=== PATIENT | female | born 1985 | race Caucasian/White ===

== ENCOUNTER 2022-11-17 12:19 | Day surgery (SDC) | payer OTHER, SELFPAY ==
[2022-11-07 16:39] VITALS: BMI 32.7
[2022-11-17] VITALS (7 sets, daily range): BP systolic 106–112; BP diastolic 58–74; PULSE 60–79; RESP 12–16; TEMP 36.1–36.6; O2SAT 96–100; BMI 32.7
--- NOTE | 2022-11-17 | PATH_ITS ---
[facility] Accession Number: [id number] No. of containers..02 Tissue . 01 Material submitted: . PART A: vagina - VAGINAL OCCLUSION CYST PART B: endometrium - ENDOMETRIAL BIOPSY . 01 Diagnosis: A. Designated As Vaginal Occlusion Cyst, Excisional Biopsy: Squamous mucosa with focally thin/attenuated simple-epithelial squamoid lining with chronic and histiocytic inflammation, and hemosiderin-laden macrophages, as evidence of prior hemorrhage. Negative for dysplasia and malignancy. See comment. . B. Endometrium, Biopsy: Proliferative endometrium with features of shedding/breakdown. Focal polypoid changes are seen. No evidence of neoplasia or malignancy. . COMMENT: Part A: The differential diagnosis includes benign epithelial-lined cyst with evidence of prior rupture/inflammation, and endometriosis (less favored). V 11/24/2022 1452 Local . 01 Electronically signed: . Isabel Basurto MD, Pathologist NPI- [id number] . 01 Gross description: . A. Received in formalin labeled with the patient's name, and vaginal occlusion cyst consists of a araiza, membranous soft tissue fragment consistent with disrupted cyst measuring 1.1 x 0.7 x 0.4 cm with no contents or excrescences identified. One aspect is inked blue. The specimen is bisected and submitted entirely in cassette A1. B. Received in formalin labeled with the patient's name, and endometrial biopsy consists of multiple araiza soft tissue fragments admixed with mucohemorrhagic material aggregating to 4.3 x 2.2 x 0.3 cm. Filtered and submitted entirely in cassettes B1-B2. ([id number]) /MRV 11/19/2022 1244 Local . 01 Pathologist provided ICD-10: N92.0, N93.9, N89.8 . 01 CPT . 371483, 526438 Specimen Comment: A courtesy copy of this report has been sent to [phone] Performed at: 01 [facility] [address] [place] [address], [place], [place] [id number] MD Nathan Latif MD Phone: [phone]
[2022-11-17] MEDS: SCOPOLAMINE 1 PATCH TOP (12:43)
[2022-11-17] MEDS: ACETAMINOPHEN 325 MG TABLET 975 MG PO (12:44)
--- NOTE | 2022-11-17 13:02 | PM.PREOP ---
Pre-operative Note COVID-19 Criteria for continued procedure: Expected advancement of disease process Interval Note History & Physical reviewed/Exam performed by Physician: Yes Changes to H&P: No
--- NOTE | 2022-11-17 13:03 | P.HPOB_ITS ---
History of Present Illness History of Present Illness Reason for admission: vaginal bleeding and other (Vaginal cyst) Narrative: Ingrid Falcon is a 37 year old female who is admitted for surgical procedure of hysteroscopy D&C and removal of vaginal wall cyst [facility] Medical History (Updated 11/17/22 @ 13:09 by Ashlyn Garcia MD) Chicken pox (~1989) Heavy menstrual period (~2018) History of vertigo Ovarian cyst Vertigo (~2020) Surgical History (Updated 11/14/22 @ 20:39 by Mindi Lindo) Anesthesia History of dilatation and curettage (~2012) History of placement of ear tubes (~1992) History of tonsillectomy (~1990) Family History (Updated 11/14/22 @ 20:43 by Mindi Lindo) Father Cancer Hyperlipidemia Mother Hyperlipidemia Anxiety High blood sugar Grandfather History of heart disease Grandmother Mental health problem Grandfather History of heart disease Grandmother Lung disease Social History household members: spouse Smoking Status: Never smoker alcohol intake: current Meds Home Medications and Allergies Home Medications Medication Instructions Recorded Confirmed Type cetirizine 10 mg tablet (Zyrtec) 10 mg PO DAILY 11/11/22 11/17/22 History cholecalciferol (vitamin D3) 50 50 mcg PO DAILY 11/11/22 11/11/22 History mcg (2,000 unit) capsule (Vitamin D3) [id number] C 250 1 tab PO DAILY 11/11/22 11/11/22 History mg-herbal no.124 11.66 mg chewable tablet (Airborne Gummy) multivitamin 1 tab PO DAILY 11/11/22 11/11/22 History omega-3 fatty acids 500 mg capsule 1,000 mg PO DAILY 11/11/22 11/11/22 History berberine-herbal comb no.18 capsule 2 cap PO DAILY 11/17/22 11/17/22 History Allergies Allergy/AdvReac Type Severity Reaction Status Date / Time No Known Drug Allergies Allergy Verified 11/11/22 11:43 Review of Systems Review of Systems Narrative: Patient is a 37-year-old A1, with progressively heavy periods since her most recent spontaneous vaginal in 2016.? She had a Kyleena IUD inserted after delivery which slightly reduced her menstrual flow but after removal in 2020, her periods have become progressively heavy.? Her cycles are 28-30 days with 5-7 days of flow, 2-3 of those days are very heavy.? She denies intermenstrual bleeding or postcoital bleeding.? She does have both superficial and deep dyspareunia with a superficial dyspareunia associated with an introital cyst which developed after her last delivery of a 10 lb 6 oz infant requiring significant perineal repair.? Patient's Pap smear in 2022 is negative but pelvic ultrasound performed 08/07/2022 prior to moving to this area shows the uterus to be normal in size, retroverted, measuring 7.2 x 5.4 x 6.4 cm.? The myometrium demonstrated no focal fibroids.? The endometrial stripe measured 1.2 cm in combined thickness.? The endometrium contains of vascular hyperechoic/heterogenous mass measuring approximately 1.4 x 0.9 x 1.6 cm.? A 2nd echogenic endometrial mass measures 1.2 cm x 0.5 cm x 1.4 cm.? The adnexa were unremarkable.? Subsequent sonohysterogram confirmed the presence of 2 endometrial polyps. Patient is agreeable to proceed with hysteroscopy D&C with removal of polyps if found with electricity and/or scraping Exam Narrative Exam Narrative: HEENT exam within normal limits. No thyromegaly. Lungs are clear to au scultation percussion. Heart is regular rate and rhythm no S3-S4 murmurs. See Dr. Christensen's note for pelvic exam on 10/28/2022. 1.5 cm cyst at the vaginal opening from prior repair vaginal tear post . Extremities without edema and nontender. Consent form for hysteroscopy D&C with removal vaginal cyst reviewed with the patient. Less than 1% risk of reaction to medication or anesthesia, infection, bleeding that could require blood transfusion, perforation the uterus that could result in needing additional surgery due to damage to internal structures such as bowel, bladder, ureters. Consent form signed and questions answered. Postop instructions for bleeding up to 6 weeks after procedure, avoiding intercourse for 2 weeks postprocedure. Call for concerns. She has a postoperative appointment scheduled on 12/04/2022 Patient declined test as she is currently on her menses and she is not had intercourse recently. Assessment & Plan Assessment and plan (1) Preoperative exam for gynecologic surgery: Status: Acute (2) Uterine polyp: Status: Acute (3) Heavy menstrual period: Status: Acute (4) Abnormal uterine bleeding due to endometrial polyp: Status: Acute (5) Vaginal inclusion cyst: Status: Acute Assessment & Plan narrative: Patient is here for hysteroscopy D&C with removal of vaginal inclusion cyst. Postop instructions reviewed. Motrin as needed for pain. Patient has a follow-up appointment on 12/04/2022. Time Spent With Patient Time with patient: less than 30 minutes
--- NOTE | 2022-11-17 13:05 | PM.DS.1 ---
History of Present Illness History of Present Illness Chief complaint: [facility] Discharge Providers Provider Primary care physician: Doctor Jose MD Discharge provider: Ashlyn Garcia MD [facility] Medical History (Updated 11/14/22 @ 20:39 by Mindi Lindo) Chicken pox (~1989) Heavy menstrual period (~2018) History of vertigo Ovarian cyst Vertigo (~2020) Surgical History (Updated 11/14/22 @ 20:39 by Mindi Lindo) Anesthesia History of dilatation and curettage (~2012) History of placement of ear tubes (~1992) History of tonsillectomy (~1990) Family History (Updated 11/14/22 @ 20:43 by Mindi Lindo) Father Cancer Hyperlipidemia Mother Hyperlipidemia Anxiety High blood sugar Grandfather History of heart disease Grandmother Mental health problem Grandfather History of heart disease Grandmother Lung disease Social History household members: spouse Smoking Status: Never smoker alcohol intake: current Discharge Plan Nursing Discharge Comment: Tylenol 975mg taken at 12:45pm. Next dose after 6:45pm Discharge orders & Medications Prescriptions: No Action multivitamin [Multi-Vitamins] Tablet 1 tab PO DAILY cetirizine [Zyrtec] 10 mg Tablet 10 mg PO DAILY Fish Oil 500 mg Capsule 1,000 mg PO DAILY cholecalciferol (vitamin D3) [Vitamin D3] 50 mcg (2,000 unit) Capsule 50 mcg PO DAILY Airborne Gummy 250-11.66 mg Tablet,Chewable 1 tab PO DAILY berberine-herbal comb no.18 Capsule 2 cap PO DAILY Follow up/Referrals: Doctor Garcia MD [Primary Care Provider] - Discharge Data Primary Care Provider: Doctor Jose Attending Provider: Ashlyn Garcia
--- NOTE | 2022-11-17 13:37 | SUR.OPER ---
Lithotomy on padded OR bed, head on pillow, arms secured on padded arm boards at <90 degrees abduction. Legs secured in padded yellow fins stirrups.
[2022-11-17] MEDS: LACTATED RINGERS 1,000 ML 42 ML IV (13:42)
--- NOTE | 2022-11-17 14:12 | PM.OP.1 ---
Operative Date/Time/Diagnoses Date of procedure: 11/17/22 Time of procedure: 14:12 Pre-op diagnosis: Menorrhagia with polyps on ultrasound, vaginal inclusion cyst at posterior fourchette Post-op diagnosis: same Procedure & Clinicians Procedure: Hysteroscopy D&C with resection of endometrial polyps. Removal of vaginal inclusion cyst. Same procedure as scheduled: Yes Indications: Menorrhagia with ultrasound consistent with endometrial polyps and inclusion cyst at the vaginal opening Surgeon: Ashlyn Garcia Click Yes if Unassisted: Yes Anesthesia Type: General Operative Notes Findings: Several large endometrial polyps at the fundus to the right side. 1 cm inclusion cyst at the midline repair of perineal tear at delivery at the vaginal opening Closure Type: primary Specimen(s): other (Endometrial biopsy and curettings and vaginal inclusion cyst) Estimated Blood Loss (mL): 10 Blood products transfused: none Procedure in detail: The patient was brought to the operating room where she underwent general anesthesia. She was placed in low stirrups She was prepped and draped in usual sterile fashion with pulsatile stockings in place and functional, warming in place, no antibiotics were indicated. Her bladder was drained with in and out catheter. A single-tooth tenaculum was placed on the anterior lip of the cervix and the uterus dilated to #8 Hegar dilator. The hysteroscope was placed into the uterus with a sorbitol solution running and under constant suction. The resecting loop set at 80 W of cutting was used to resect the polyps down to the level of the endometrium. An endometrial curettage was performed. The polyps and the endometrial curettage was sent to pathology. An incision was made over the inclusion cyst at the hymenal ring at 6:00 o'clock. The cyst had thick araiza inclusion material. The cyst wall was grasped and remove with scissors. The defect was closed with [id number] sutures of 3-0 Vicryl suture and the skin was closed subcuticularly with 3-0 Vicryl suture. The patient went to recovery room in good condition counts of instruments and sponges were correct. The sorbitol solution I=O approximately 2000 mL. Complications: none Post-operative Condition: stable Disposition: same day surgery Plan for aftercare: Home when awake and stable. Treatment and follow-up based on pathology report.
[2022-11-17] MEDS: OXYCODONE IR 5 MG TABLET PO ×2 (14:25→14:43)
--- NOTE | 2022-11-17 15:07 | SUR.PHASEII ---
1500 Patient ready for discharge, but waiting for to arrive at around 1530.
== END 2022-11-17 15:30 | disposition home or self-care (01) ==
PROVIDERS: Referring Provider Specialist; Visit Provider Specialist
PROC: 0UDB8ZZ Extraction of Endometrium, Via Natural or Artificial Opening Endoscopic (ICD-10-PCS; CPT 58558; principal; 2022-11-17 13:30)
DX: N92.0 Excessive and frequent menstruation with regular cycle (principal); N84.0 Polyp of corpus uteri; N89.8 Other specified noninflammatory disorders of vagina
CPT/HCPCS: 58558; 57135; 81025; J1100; J1885; J2250; J2405; J2704; J3010

== ENCOUNTER → 2023-06-10 07:28 | Outpatient (CLI) | payer OTHER, SELFPAY ==
[2023-06-10 09:31] LABS: Add Manual Diff / Slide Review NO; Basophils Absolute Auto 100 /uL (0-100); Eosinophils Absolute Auto 300 /uL (0-450); Eosinophils Percent Auto 4.8 % (2-4); Hematocrit 38.1 % (36-46); Hemoglobin 13.1 g/dL (12.0-16.0); Lymphocytes Absolute Auto 2500 /uL (1100-4500); Lymphocytes Percent Auto 40.4 % (25-40); Mean Corpuscular HGB Conc 34.5 % (30-36); Mean Corpuscular Hemoglobin 30.4 PG (26-34); Mean Corpuscular Volume 88.2 fL (80-100); Monocytes Absolute Auto 500 /uL (0-900); Monocytes Percent Auto 7.6 % (3-14); Neutrophils Absolute Auto 2900 /uL (1500-7000); Neutrophils Percent Auto 46.2 % (50-75); Platelet Count 268 X10^3/uL (150-400); Red Blood Cell Count 4.32 X10^6/uL (4.0-5.2); Red Cell Distribution Width 13.7 % (11.6-14.8); White Blood Cell Count 6.2 X10^3/uL (4.5-11.0)
[2023-06-10 09:54] LABS: Alanine Aminotransferase 16 IU/L (<35); Albumin 3.9 g/dL (3.5-5.0); Albumin Globulin Ratio 1.6 (1.0-2.8); Alkaline Phosphatase 52 U/L (38-126); Aspartate Aminotransferase 15 IU/L (14-36); BUN Creatinine Ratio 30.2 (6-22); Bilirubin Total 0.8 mg/dL (0.2-1.3); Blood Urea Nitrogen 19 mg/dL (7-17); Calcium 9.2 mg/dL (8.4-10.2); Carbon Dioxide 27 mmol/L (22-32); Chloride 109 mmol/L (98-107); Cholesterol 187 mg/dL (140-199); Estimated Glomerular Filt Rate > 60 mL/min (>60); Globulin 2.5 g/dL (1.7-4.1); Glucose 85 mg/dL (70-100); HDL Cholesterol 51 mg/dL (40-60); HEMOLYSIS < 15 (0-50); LDL Cholesterol Calculated 119 mg/dL (<100); Potassium 4.3 mmol/L (3.4-5.1); Sodium 140 mmol/L (137-145); Total Protein 6.4 g/dL (6.3-8.2); Triglycerides 83 mg/dL (35-150)
== END ==
PROVIDERS: PCP Family Medicine; Referring Provider Family Medicine; Visit Provider Family Medicine
DX: Z00.00 Encounter for general adult medical examination without abnormal findings (principal); E66.9 Obesity, unspecified; Z76.89 Persons encountering health services in other specified circumstances; Z13.1 Encounter for screening for diabetes mellitus; Z13.220 Encounter for screening for lipoid disorders
CPT/HCPCS: 36415; 80053; 80061; 83036; 85025

== ENCOUNTER 2024-02-22 09:00 | Outpatient (RCR) | payer OTHER, SELFPAY ==
--- NOTE | 2023-12-08 17:54 | PT.OIE ---
Current Diagnoses Other specified disorders of muscle (12/08/23) Stress incontinence (female) (male) (12/08/23) Past Medical History (Last Updated 06/13/23 @ 20:29 by Mindi Lindo) Abnormal Pap smear of cervix (~2004) Abnormal uterine bleeding due to endometrial polyp (~11/2022) Anxiety (~2020) Chicken pox (~1989) Heavy menstrual period (~2018) History of vertigo Ovarian cyst (~2002) Vaginal inclusion cyst Vertigo (~2020) Past Surgical History (Last Updated 06/13/23 @ 20:29 by Mindi Lindo) Anesthesia History of dilatation and curettage (~2012) History of placement of ear tubes (~1992) History of removal of ovarian cyst (~11/2022) History of tonsillectomy (~1990) Visit Care Team Role Provider Type Sandy Sandoval DO Attending Provider Physician Family Provider Primary Care Provider Referring Provider Specialty: Family Practice Address: [address] [place] [address], [address], [facility] Email: [email or web address] Physical Therapy Initial Evaluation PT-OP-A Visit Information Start: 12/03/23 18:57 Freq: Status: Active Protocol: Document 12/08/23 07:32 LRN (Rec: 12/08/23 08:16 LRN [id number]) Out-Patient Physical Therapy Visit Information Visit Information Visit Type Initial Evaluation Visit Start Time 07:32 Visit Stop Time 08:15 Visit Number Evaluation Information Evaluation Date 12/08/23 Precautions Precautions Pt reported 3rd degree tears with childbirth x2 (12/2013, ). PT-OP-B Current Condition Start: 12/03/23 18:57 Freq: Status: Active Protocol: Document 12/08/23 07:32 LRN (Rec: 12/08/23 08:16 LRN [id number]) Current Condition History of Current Condition Onset Date 10/2016 Current Complaints Pain w/entry and deep thrust and incontinence sneeze, jump, wgt lift. History of Current Condition Pt reports recieving therapy for stress incontinence and painful intercourse, after the of her 2nd child, that has gradually worsened and now fees she has to do something about it . 3 P, 2B, of vaginal deliveries. First he was 6#10 and pushed for 3 hrs, 2nd was 10#6oz and birthed in 30 minutes, both 3rd degree tears. STarted seeing a chiropractor because her hips are off L hip if forward and chiro pops it back in. Prior Treatments and Tests Pt repors she is intermittently seeing a chiropractor who works on moving her hip joint posteriorly. Developmental History Developmental History 12/2013, 10/2016 births. Treatment Goals Patient/Caregiver Goals Pt goal -not urinate when sneezing, jumping, lifting -have intercourse w/o pain. Prior Functional Status Baseline Function- Recreation/Hobbies Uncomfortable with intercoure in certain position. Current Functional Impairments (Reported) Functional Limitations- ADL's Painful intercourse no matter the position. 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 Therapy/Recovery Children ages 7 & 10. PT-OP-C Subjective Start: 12/03/23 18:57 Freq: Status: Active Protocol: Document 12/08/23 07:32 LRN (Rec: 12/08/23 08:16 LRN [id number]) Patient Questionnaires Pelvic Pain and Urgency/Frequency Patient Symptom Scale Pelvic Pain Score 8 PT-OP-I Pelvic Floor Start: 12/03/23 18:57 Freq: Status: Active Protocol: Document 12/08/23 07:32 LRN (Rec: 12/08/23 08:16 LRN [id number]) Pelvic Floor Assessment Urine Pelvic Floor Surgery Yes Urinary Symptoms Falling Out Feeling/Heavy Other Urinary Symptoms Heaviness, achiness during period. Leakage Cause Exercise,Sneeze Other Leakage Causes Uses a pad with exercise, because leakage is large, otherwise leakage is small unless bladder is full. Leaks Per Day 0-1 Voiding Frequency 4 Nocturia 0 Pads Used In 24 Hours 0-1 Urine Pad Type Maxi Pad Bowel Bowel Movement Frequency 1/day [place] Stool Chart Type 1-7 4 Pelvic Clock Pelvic Clock Other Tenderness/pain Internal PF clock 1-3 and 9. Lessening of pain at 9 after initial palpation. Tenderness deep at cervix and around cervix on sides and posterior. Prolapse Cystocele Grade 2 Urethrocele Grade 2 Rectocele Grade 1 Prolapse Comments Uterine drop with cervix felt at ~7 cm deep. Possible enterocele at PF clock 2-3. Perineal Descent Resting Absent Bearing Present Contraction Ability Manual Muscle Testing Left 1 Manual Muscle Testing Right 2 Manual Muscle Testing Anterior 2 Manual Muscle Testing Posterior 2 Muscle Endurance (Seconds) 2 Number of Quick Contractions In 10 6 Seconds PT-OP-J Posture/Palpation/Skin Start: 12/03/23 18:57 Freq: Status: Active Protocol: Document 12/08/23 07:32 LRN (Rec: 12/08/23 08:16 LRN [id number]) Posture Evaluation Position Standing Pelvis Posture (L) PSIS Posterior Knee Posture (L) Genu Valgus,(R) Genu Valgus Foot Arch (L) High Arch,(R) Medium Arch Comments Posture Comments Straightened upper T/S, umbilcus shifted R. PT-OP-K Range of Motion Start: 12/03/23 18:57 Freq: Status: Active Protocol: Document 12/08/23 07:32 LRN (Rec: 12/08/23 08:16 LRN [id number]) Lumbar Spine Range of Motion Lumbar Spine Active Degrees Testing Position Standing Flexion 90 Extension 10 Rotation Left 15 Rotation Right 20 Lateral Flexion Left 10 Lateral Flexion Right 15 Hip Goniometric Range of Motion Hip Right Passive Testing Position Supine Abduction 45 Internal Rotation 10 External Rotation 70 Left Passive Testing Position Supine Abduction 40 Internal Rotation 10 External Rotation 60 PT-OP-M Strength Start: 12/03/23 18:57 Freq: Status: Active Protocol: Document 12/08/23 07:32 LRN (Rec: 12/08/23 08:16 LRN [id number]) Trunk Strength Trunk Manual Muscle Testing Core Stabilization Generally 4+/5, mild loss of rotational stability with MMT of hips. Hip Strength Hip Manual Muscle Testing Right Comments All muscle groups 5/5 Left Comments All muscle groups 5/5 PT-OP-Q Treatments Start: 12/03/23 18:57 Freq: Status: Active Protocol: Document 12/08/23 07:32 LRN (Rec: 12/08/23 08:16 LRN [id number]) Self-Care/Home Management Treatment Education Other Education Discussed results of evaluation, goals, treatment, and plan of care (POC) with pt , attendance/cx/dns policy; pt agreeable to evaluation, goals, treatment, attendance/ cx/dns policy and POC. Activities Self-Care/Home Management Activities Issued & reviewed HEP: Neeraj miranda'aston and discussed exercise of Quick Flicks, Long Holds and Aggravators. Issued HEP: Deep breathing exercise. PT-OP-T Assessment and Plan Start: 12/03/23 18:57 Freq: Status: Active Protocol: Document 12/08/23 07:32 LRN (Rec: 12/08/23 08:16 LRN [id number]) Physical Therapy Assessment Rehab Potential Rehabilitation Potential Good Evaluation Complexity Number of Personal Factors/Comorbidities 1-2 Number of Body Systems Impaired 4 or More Clinical Presentation at Evaluation Evolving Impairments Impairments Activity Tolerance,Pain, Posture,ROM,Soft Tissue Mobility,Strength,Transfers Other Impairments Poor coordination for core presssure management. Poor deep breathing mechanics Goals Three Impairment Urinary leakage with sneezing, lifting and jumping. Short Term Goal (STG) Eliminate urinary leakage with sneezing, modifying method of sneezing. STG Duration 01/22/24 Intermediate Goal (LTG) Eliminate urinary leakage with lifting and minimize with jumping. LTG Duration 03/04/24 Two Impairment Pain with intercourse Short Term Goal (STG) Pt will be educated and be able to determine the best position for intercourse to minimize the pain and tissue irritation. STG Duration 01/22/24 Software Program Manager Goal (LTG) Eliminate Pelvic pain with intercourse. LTG Duration 03/04/24 One Impairment Pt lacks appropriate self care HEP. Short Term Goal (STG) Education in proper methods for transfer with coordination of breathing, PF contractions , and proper vulvar/genital care. STG Duration 01/22/24 Software Program Manager Goal (LTG) Pt will be independent with a self care HEP of PF strengthening to improve blood flow and support to bladder, and hip ROM exercises. LTG Duration 03/04/24 Assessment Summary Assessment Pt is a 38 yo female with dysparenia (with deep thrust) and stress urinary incontinence (in abscence of constipation), since the of her first child in 2013 and worsening of symptoms after her 2nd child in 2017. Cystocele, mild rectocele, urethra drop and possible enterocele is present. Her pain with intercourse is probably due to pressure on the cervix with deep thrust and pressure on what may be an enterocele. Tenderness is present on area surrounding the cervix, just inferior to the uterus. Hip IR mobility is extremely limited and hip ER/AB is worse on the left. Hip strength is normal, core stability is slightly limited with rotation. If therapy is not able to eliminate her symptoms, further assessment of her tissues internally would be recommended. The pt will benefit from skilled physical therapy to improve strength and blood flow to her PF, reduce her core pressure with education coordinating breathing with movement and education in self care and HEP , manual therapy to improve tissue mobility and therapeutic exercise and activity to improve hip/trunk mobility and best practice transfers. Physical Therapy Plan Frequency and Duration Frequency of Treatment 1x/Week Duration of treatment (weeks) 12 Plan of Care Start Date 12/08/23 Plan of Care End Date 03/04/24 Therapeutic Interventions Therapeutic Interventions Home Exercise Program,Joint Mobilizations,Manual Therapy, Neuromuscular Re-education, Self-Care/Home Management,Soft Tissue Mobilization, Therapeutic Activities, Therapeutic Exercises Modalities Biofeedback,Electric Stimulation Next Visit Focus/Plan Next Note Type Treatment Note Next Visit Plan Review Bladder dairy and discuss norms for fluid intake (AM/PM) and normal urination times and frequency, discuss timing for voiding (before or after exercise), and do aggrevator training. Hip stretches. EMG PF assessment strengthening long holds > Quick contractions. Educate pt in pre-sexual activities & positioning ( stretch elevated before), and in genital/vulvar care. Manual: assess for sacral balancing and DR. Pt education in proper Kegel ( without use of substitute muscles), Educate pt in proper transfers , body mechanics coordinating breathwork and PF contractions (proper squatting and lifting , sit to stand, and moving in bed). Improve abdominal soft tissue (uterus/bladder/urachus/GI) mobility. Therapeutic Exercises hip IR, L ER/AB mobility and core rot (coord breathing) and issue exs.
--- NOTE | 2023-12-08 19:03 | PT-OP ANOTE ---
g left with [facility] requesting call bakc from Sandy Sandoval, regarding patient.
--- NOTE | 2023-12-15 11:14 | PT.OTN ---
Current Diagnoses Other specified disorders of muscle (12/15/23) Stress incontinence (female) (male) (12/15/23) Physical Therapy Treatment Note PT-OP-A Visit Information Start: 12/03/23 18:57 Freq: Status: Active Protocol: Document 12/15/23 07:30 LRN (Rec: 12/15/23 08:16 LRN [id number]) Out-Patient Physical Therapy Visit Information Visit Information Visit Type Treatment Note Visit Start Time 07:30 Visit Stop Time 08:13 Visit Number Evaluation Information Evaluation Date 12/08/23 Precautions Precautions Pt reported 3rd degree tears with childbirth x2 (12/2013, ). PT-OP-B Current Condition Start: 12/03/23 18:57 Freq: Status: Active Protocol: Document 12/08/23 07:32 LRN (Rec: 12/08/23 08:16 LRN [id number]) Current Condition History of Current Condition Onset Date 10/2016 Current Complaints Pain w/entry and deep thrust and incontinence sneeze, jump, wgt lift. History of Current Condition Pt reports recieving therapy for stress incontinence and painful intercourse, after the of her 2nd child, that has gradually worsened and now fees she has to do something about it . 3 P, 2B, of vaginal deliveries. First he was 6#10 and pushed for 3 hrs, 2nd was 10#6oz and birthed in 30 minutes, both 3rd degree tears. STarted seeing a chiropractor because her hips are off L hip if forward and chiro pops it back in. Prior Treatments and Tests Pt repors she is intermittently seeing a chiropractor who works on moving her hip joint posteriorly. Developmental History Developmental History 12/2013, 10/2016 births. Treatment Goals Patient/Caregiver Goals Pt goal -not urinate when sneezing, jumping, lifting -have intercourse w/o pain. Prior Functional Status Baseline Function- Recreation/Hobbies Uncomfortable with intercoure in certain position. Current Functional Impairments (Reported) Functional Limitations- ADL's Painful intercourse no matter the position. 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 Therapy/Recovery Children ages 7 & 10. PT-OP-C Subjective Start: 12/03/23 18:57 Freq: Status: Active Protocol: Document 12/15/23 07:30 LRN (Rec: 12/15/23 08:16 LRN [id number]) OP-PT Subjective Patient Comments Patient Comments States when she sneezed she didn't have to cross her legs to keep from leaking. Runs w/ o leaking (3' jog, 1' walk), [place] normal-no leakage. Double jump - [place]. PT-OP-I Pelvic Floor Start: 12/03/23 18:57 Freq: Status: Active Protocol: Document 12/08/23 07:32 LRN (Rec: 12/08/23 08:16 LRN [id number]) Pelvic Floor Assessment Urine Pelvic Floor Surgery Yes Urinary Symptoms Falling Out Feeling/Heavy Other Urinary Symptoms Heaviness, achiness during period. Leakage Cause Exercise,Sneeze Other Leakage Causes Uses a pad with exercise, because leakage is large, otherwise leakage is small unless bladder is full. Leaks Per Day 0-1 Voiding Frequency 4 Nocturia 0 Pads Used In 24 Hours 0-1 Urine Pad Type Maxi Pad Bowel Bowel Movement Frequency 1/day [place] Stool Chart Type 1-7 4 Pelvic Clock Pelvic Clock Other Tenderness/pain Internal PF clock 1-3 and 9. Lessening of pain at 9 after initial palpation. Tenderness deep at cervix and around cervix on sides and posterior. Prolapse Cystocele Grade 2 Urethrocele Grade 2 Rectocele Grade 1 Prolapse Comments Uterine drop with cervix felt at ~7 cm deep. Possible enterocele at PF clock 2-3. Perineal Descent Resting Absent Bearing Present Contraction Ability Manual Muscle Testing Left 1 Manual Muscle Testing Right 2 Manual Muscle Testing Anterior 2 Manual Muscle Testing Posterior 2 Muscle Endurance (Seconds) 2 Number of Quick Contractions In 10 6 Seconds PT-OP-J Posture/Palpation/Skin Start: 12/03/23 18:57 Freq: Status: Active Protocol: Document 12/08/23 07:32 LRN (Rec: 12/08/23 08:16 LRN [id number]) Posture Evaluation Position Standing Pelvis Posture (L) PSIS Posterior Knee Posture (L) Genu Valgus,(R) Genu Valgus Foot Arch (L) High Arch,(R) Medium Arch Comments Posture Comments Straightened upper T/S, umbilcus shifted R. PT-OP-K Range of Motion Start: 12/03/23 18:57 Freq: Status: Active Protocol: Document 12/08/23 07:32 LRN (Rec: 12/08/23 08:16 LRN [id number]) Lumbar Spine Range of Motion Lumbar Spine Active Degrees Testing Position Standing Flexion 90 Extension 10 Rotation Left 15 Rotation Right 20 Lateral Flexion Left 10 Lateral Flexion Right 15 Hip Goniometric Range of Motion Hip Right Passive Testing Position Supine Abduction 45 Internal Rotation 10 External Rotation 70 Left Passive Testing Position Supine Abduction 40 Internal Rotation 10 External Rotation 60 PT-OP-M Strength Start: 12/03/23 18:57 Freq: Status: Active Protocol: Document 12/08/23 07:32 LRN (Rec: 12/08/23 08:16 LRN [id number]) Trunk Strength Trunk Manual Muscle Testing Core Stabilization Generally 4+/5, mild loss of rotational stability with MMT of hips. Hip Strength Hip Manual Muscle Testing Right Comments All muscle groups 5/5 Left Comments All muscle groups 5/5 PT-OP-Q Treatments Start: 12/03/23 18:57 Freq: Status: Active Protocol: Document 12/15/23 07:30 LRN (Rec: 12/15/23 08:16 LRN [id number]) Therapeutic Exercises Supine Exercises Piriformis stretch Supine Exercise Name Ankle of over knee>Knee towards chest. Side bilateral Reps/Minutes 6' Deep Breathing Supine Exercise Name 6 sec inhale & exhale breathing Reps/Minutes 5' Comments Cued to slow inhale, cued to use hands on chest/abdomen to deep breath Prone Exercises Hip IR stretch Side bilateral Resistance Plinth at 80 deg's bend to support feet. Reps/Minutes 2' Comments Extra time for set up. Manual Therapy Treatment Soft Tissue Mobilization PF Body Location L side deep muscles. Mobilization Type Sustained Pressure Intensity/Depth Superficial Body Position Hooklying Comments + TrP release except at one location (~OI) discomfort increased; therefore discontinued and switched to hip stretching. Self-Care/Home Management Treatment Education Other Education Educated pt in pelvic floor anatomy and effects of stress, gravity, exercise on PF muscles, with use of PF model. Reviewed 1.5 days of Bladder dairy and discussed discuss norms for fluid intake (AM/PM) and normal urination times and frequency, discussed timing for voiding (before or after exercise). PT-OP-T Assessment and Plan Start: 12/03/23 18:57 Freq: Status: Active Protocol: Document 12/15/23 07:30 LRN (Rec: 12/15/23 08:16 LRN [id number]) Physical Therapy Assessment Goals Three Impairment Urinary leakage with sneezing, lifting and jumping. Short Term Goal (STG) Eliminate urinary leakage with sneezing, modifying method of sneezing. STG Duration 01/22/24 Nursing Home Goal (LTG) Eliminate urinary leakage with lifting and minimize with jumping. LTG Duration 03/04/24 Two Impairment Pain with intercourse Short Term Goal (STG) Pt will be educated and be able to determine the best position for intercourse to minimize the pain and tissue irritation. STG Duration 01/22/24 Public Relations Associate Goal (LTG) Eliminate Pelvic pain with intercourse. LTG Duration 03/04/24 One Impairment Pt lacks appropriate self care HEP. Short Term Goal (STG) Education in proper methods for transfer with coordination of breathing, PF contractions , and proper vulvar/genital care. STG Duration 01/22/24 Public Relations Associate Goal (LTG) Pt will be independent with a self care HEP of PF strengthening to improve blood flow and support to bladder, and hip ROM exercises. LTG Duration 03/04/24 Assessment Summary Assessment 38 yo female w/dysparenia ( deep thrust) & DESIREE (no constipation), since of children (10 & 7). No urinary leakage with job or jump ( only with double jumps). Cystocele, mild rectocele, urethra drop and possible enterocele (deep L side) is present. Tenderness is present on area surrounding the cervix, just inferior & to left of uterus. Very limited hip IR mobility and L>R wtih hip ER/AB. Today, much improved deep breathing after training. Less tender on L side of vaginal canal, deep; with elevation of hips on pillow. ?Enterocele to L of cervix with internal palpation . Physical Therapy Plan Frequency and Duration Frequency of Treatment 1x/Week Duration of treatment (weeks) 12 Plan of Care Start Date 12/08/23 Plan of Care End Date 03/04/24 Next Visit Focus/Plan Next Note Type Treatment Note Next Visit Plan Hip stretches. Therapeutic Exercises hip IR, L ER/AB mobility and core rot (coord breathing) and issue exs. EMG PF assessment strengthening long holds > Quick contractions. Educate pt in pre-sexual activities & positioning ( stretch elevated before), and in genital/vulvar care. Manual: assess response to sacral balancing and DRWilliam Pt education in proper Kegel ( without use of substitute muscles), Educate pt in proper transfers , body mechanics coordinating breathwork and PF contractions (proper squatting and lifting , sit to stand, and moving in bed). Improve abdominal soft tissue (uterus/bladder/urachus/GI) mobility.
--- NOTE | 2023-12-18 13:31 | PT-OP ANOTE ---
Msg left with Dr. Sandy Mcmahon informing of findings on initial evaluation and reasons for having pt return for check on her PF at Pelvic Clock ~1-2 due to pain/tenderness, possible enterocele or tissue inflammation, and for assessment of uterocele as felt at end of vaginal canal. Pt to call back if further information is needed.
--- NOTE | 2023-12-22 10:41 | PT.OTN ---
Current Diagnoses Other specified disorders of muscle (12/22/23) Stress incontinence (female) (male) (12/22/23) Physical Therapy Treatment Note PT-OP-A Visit Information Start: 12/03/23 18:57 Freq: Status: Active Protocol: Document 12/22/23 09:03 LRN (Rec: 12/22/23 09:53 LRN [id number]) Out-Patient Physical Therapy Visit Information Visit Information Visit Type Treatment Note Visit Start Time 09:03 Visit Stop Time 09:41 Visit Number Evaluation Information Evaluation Date 12/08/23 Precautions Precautions Pt reported 3rd degree tears with childbirth x2 (12/2013, ). PT-OP-B Current Condition Start: 12/03/23 18:57 Freq: Status: Active Protocol: Document 12/08/23 07:32 LRN (Rec: 12/08/23 08:16 LRN [id number]) Current Condition History of Current Condition Onset Date 10/2016 Current Complaints Pain w/entry and deep thrust and incontinence sneeze, jump, wgt lift. History of Current Condition Pt reports recieving therapy for stress incontinence and painful intercourse, after the of her 2nd child, that has gradually worsened and now fees she has to do something about it . 3 P, 2B, of vaginal deliveries. First he was 6#10 and pushed for 3 hrs, 2nd was 10#6oz and birthed in 30 minutes, both 3rd degree tears. STarted seeing a chiropractor because her hips are off L hip if forward and chiro pops it back in. Prior Treatments and Tests Pt repors she is intermittently seeing a chiropractor who works on moving her hip joint posteriorly. Developmental History Developmental History 12/2013, 10/2016 births. Treatment Goals Patient/Caregiver Goals Pt goal -not urinate when sneezing, jumping, lifting -have intercourse w/o pain. Prior Functional Status Baseline Function- Recreation/Hobbies Uncomfortable with intercoure in certain position. Current Functional Impairments (Reported) Functional Limitations- ADL's Painful intercourse no matter the position. 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 Therapy/Recovery Children ages 7 & 10. PT-OP-C Subjective Start: 12/03/23 18:57 Freq: Status: Active Protocol: Document 12/22/23 09:03 LRN (Rec: 12/22/23 09:53 LRN [id number]) OP-PT Subjective Patient Comments Patient Comments On last day of period. Went to [employer] and came back late 2 days ago. Has been working on [place] holding 4 secs. PT-OP-I Pelvic Floor Start: 12/03/23 18:57 Freq: Status: Active Protocol: Document 12/08/23 07:32 LRN (Rec: 12/08/23 08:16 LRN [id number]) Pelvic Floor Assessment Urine Pelvic Floor Surgery Yes Urinary Symptoms Falling Out Feeling/Heavy Other Urinary Symptoms Heaviness, achiness during period. Leakage Cause Exercise,Sneeze Other Leakage Causes Uses a pad with exercise, because leakage is large, otherwise leakage is small unless bladder is full. Leaks Per Day 0-1 Voiding Frequency 4 Nocturia 0 Pads Used In 24 Hours 0-1 Urine Pad Type Maxi Pad Bowel Bowel Movement Frequency 1/day [place] Stool Chart Type 1-7 4 Pelvic Clock Pelvic Clock Other Tenderness/pain Internal PF clock 1-3 and 9. Lessening of pain at 9 after initial palpation. Tenderness deep at cervix and around cervix on sides and posterior. Prolapse Cystocele Grade 2 Urethrocele Grade 2 Rectocele Grade 1 Prolapse Comments Uterine drop with cervix felt at ~7 cm deep. Possible enterocele at PF clock 2-3. Perineal Descent Resting Absent Bearing Present Contraction Ability Manual Muscle Testing Left 1 Manual Muscle Testing Right 2 Manual Muscle Testing Anterior 2 Manual Muscle Testing Posterior 2 Muscle Endurance (Seconds) 2 Number of Quick Contractions In 10 6 Seconds PT-OP-J Posture/Palpation/Skin Start: 12/03/23 18:57 Freq: Status: Active Protocol: Document 12/08/23 07:32 LRN (Rec: 12/08/23 08:16 LRN [id number]) Posture Evaluation Position Standing Pelvis Posture (L) PSIS Posterior Knee Posture (L) Genu Valgus,(R) Genu Valgus Foot Arch (L) High Arch,(R) Medium Arch Comments Posture Comments Straightened upper T/S, umbilcus shifted R. PT-OP-K Range of Motion Start: 12/03/23 18:57 Freq: Status: Active Protocol: Document 12/08/23 07:32 LRN (Rec: 12/08/23 08:16 LRN [id number]) Lumbar Spine Range of Motion Lumbar Spine Active Degrees Testing Position Standing Flexion 90 Extension 10 Rotation Left 15 Rotation Right 20 Lateral Flexion Left 10 Lateral Flexion Right 15 Hip Goniometric Range of Motion Hip Right Passive Testing Position Supine Abduction 45 Internal Rotation 10 External Rotation 70 Left Passive Testing Position Supine Abduction 40 Internal Rotation 10 External Rotation 60 PT-OP-M Strength Start: 12/03/23 18:57 Freq: Status: Active Protocol: Document 12/08/23 07:32 LRN (Rec: 12/08/23 08:16 LRN [id number]) Trunk Strength Trunk Manual Muscle Testing Core Stabilization Generally 4+/5, mild loss of rotational stability with MMT of hips. Hip Strength Hip Manual Muscle Testing Right Comments All muscle groups 5/5 Left Comments All muscle groups 5/5 PT-OP-Q Treatments Start: 12/03/23 18:57 Freq: Status: Active Protocol: Document 12/22/23 09:03 LRN (Rec: 12/22/23 09:53 LRN [id number]) Therapeutic Exercises Supine Exercises Wedge/Kegel/ball squeeze Supine Exercise Name Kegel 4 Sh f/b 2 SH ball squeeze Equipment Used Wedge/Ball Reps/Minutes 4 SH, f/b 2 SH ball squeeze x 5 Wedge/Kegel Supine Exercise Name Wedge/bolster/partial endurance Reps/Minutes 5SH/10 SR x 6, rest, then x 4 Kegel in isolation Reps/Minutes 3x Comments Pt able to perform in isolation after training x 1 Fig 4 Side left Reps/Minutes 3' Lateral Hip stretch Side bilateral Reps/Minutes 60 SH x 1 Comments Extra time taken to determine max tolerated stretch. Piriformis stretch Supine Exercise Name Ankle of over knee>Knee towards chest. Side bilateral Reps/Minutes 6' Sitting Exercises SL L hip AD stretch Side left Reps/Minutes 1' x 2 Therapeutic Activity Therapeutic Activity Coordination of Kegel/Breath with transfers Name Kegel/Breath with transfers and discussed with ADL, lifting/reaching. Reps/Minutes 8' Comments Fair amt of cuing needed to coordinate mvmt. Self-Care/Home Management Treatment Education Other Education Educated pt in pre-sexual activities & positioning ( stretch elevated before intercourse). Activities Self-Care/Home Management Activities Issued & reviewed HEP: bilateral Piriformis & lateral hip stretch, and L ER(fig 4)/ AD (SL & adrián) stretch. Issued Handout: Transfers with breath/Kegel. PT-OP-T Assessment and Plan Start: 12/03/23 18:57 Freq: Status: Active Protocol: Document 12/22/23 09:03 LRN (Rec: 12/22/23 09:53 LRN [id number]) Physical Therapy Assessment Goals Three Impairment Urinary leakage with sneezing, lifting and jumping. Short Term Goal (STG) Eliminate urinary leakage with sneezing, modifying method of sneezing. STG Duration 01/22/24 Pony Worker Goal (LTG) Eliminate urinary leakage with lifting and minimize with jumping. LTG Duration 03/04/24 Two Impairment Pain with intercourse Short Term Goal (STG) Pt will be educated and be able to determine the best position for intercourse to minimize the pain and tissue irritation. 12/22/23: Reviewed recommendations of positional stretch with hips on pillows and inner thigh stretch prior to intercourse. STG Duration 01/22/24 progressed 12/22/23. Pony Worker Goal (LTG) Eliminate Pelvic pain with intercourse. LTG Duration 03/04/24 One Impairment Pt lacks appropriate self care HEP. Short Term Goal (STG) Education in proper methods for transfer with coordination of breathing, PF contractions , and proper vulvar/genital care. 12/22/23: Educated w/handout issued: Transfers & discussed ADLs with breath/Kegel. STG Duration 01/22/24 progressed 12/22/23 (need educ proper vulvar/ genital care) Pony Worker Goal (LTG) Pt will be independent with a self care HEP of PF strengthening to improve blood flow and support to bladder, and hip ROM exercises. (late entry) Issued 12/08/23: HEP: Kegel ex's and discussed exercise of Quick Flicks, Long Holds and Aggravators. Issued HEP: Deep breathing exercise. 12/22/23: HEP: bilateral Piriformis & lateral hip stretch, and L ER(fig 4)/AD ( SL & adrián) stretch. I/S pt to do Kegels on wedge and to increase to 5 SH and with ball squeeze an added 2 SH. LTG Duration 03/04/24 progressed 12/22/23 Assessment Summary Assessment Pt has mild use of abdominal with Kegel, otherwise isolates well. Needs thought to coordinate breath/Kegel with transfers. Good understanding of hip stretches. Physical Therapy Plan Frequency and Duration Frequency of Treatment 1x/Week Duration of treatment (weeks) 12 Plan of Care Start Date 12/08/23 Plan of Care End Date 03/04/24 Next Visit Focus/Plan Next Note Type Treatment Note Next Visit Plan Review Therapeutic Exercises issued: hip IR, L ER/AB mobility and core rot (coord breathing). EMG PF assessment strengthening long holds > Quick contractions. Educate pt ingenital/vulvar care and further body mechanics training, coordinating breath/Kegel Manual: assess response to sacral balancing and DR. Pt education in proper Kegel ( without use of substitute muscles), Improve abdominal soft tissue (uterus/bladder/urachus/GI) mobility.
--- NOTE | 2023-12-29 17:26 | PT.OTN ---
Current Diagnoses Other specified disorders of muscle (12/29/23) Stress incontinence (female) (male) (12/29/23) Physical Therapy Treatment Note PT-OP-A Visit Information Start: 12/03/23 18:57 Freq: Status: Active Protocol: Document 12/29/23 09:50 LRN (Rec: 12/29/23 10:45 LRN [id number]) Out-Patient Physical Therapy Visit Information Visit Information Visit Type Treatment Note Visit Start Time 09:50 Visit Stop Time 10:32 Visit Number Evaluation Information Evaluation Date 12/08/23 Precautions Precautions Pt reported 3rd degree tears with childbirth x2 (12/2013, ). PT-OP-B Current Condition Start: 12/03/23 18:57 Freq: Status: Active Protocol: Document 12/08/23 07:32 LRN (Rec: 12/08/23 08:16 LRN [id number]) Current Condition History of Current Condition Onset Date 10/2016 Current Complaints Pain w/entry and deep thrust and incontinence sneeze, jump, wgt lift. History of Current Condition Pt reports recieving therapy for stress incontinence and painful intercourse, after the of her 2nd child, that has gradually worsened and now fees she has to do something about it . 3 P, 2B, of vaginal deliveries. First he was 6#10 and pushed for 3 hrs, 2nd was 10#6oz and birthed in 30 minutes, both 3rd degree tears. STarted seeing a chiropractor because her hips are off L hip if forward and chiro pops it back in. Prior Treatments and Tests Pt repors she is intermittently seeing a chiropractor who works on moving her hip joint posteriorly. Developmental History Developmental History 12/2013, 10/2016 births. Treatment Goals Patient/Caregiver Goals Pt goal -not urinate when sneezing, jumping, lifting -have intercourse w/o pain. Prior Functional Status Baseline Function- Recreation/Hobbies Uncomfortable with intercoure in certain position. Current Functional Impairments (Reported) Functional Limitations- ADL's Painful intercourse no matter the position. 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 Therapy/Recovery Children ages 7 & 10. PT-OP-C Subjective Start: 12/03/23 18:57 Freq: Status: Active Protocol: Document 12/29/23 09:50 LRN (Rec: 12/29/23 10:45 LRN [id number]) OP-PT Subjective Patient Comments Patient Comments States she had an urge and was not able to stop the flow of urine. Has been trying to doing to do Kegels. Has noticed hip mobility improved as she can squat parallel in the gym. PT-OP-I Pelvic Floor Start: 12/03/23 18:57 Freq: Status: Active Protocol: Document 12/29/23 09:50 LRN (Rec: 12/29/23 10:45 LRN [id number]) Pelvic Floor Assessment SEMG (uV) Baseline 4.2 Quick Contraction 16.7 10 Second Contraction 17.6 Recruitment Pattern Good Relaxation Poor/Slow Holding Poor/Slow Stability of Hold Poor/Slow SEMG Stability of Rest Fair Comments Pelvic Floor Comments Positioning: Arms by sides, Legs on bolster. Quick Flicks: 10 reps strength (uV's): avg work 16.7, avg rest 13.5. 20 reps strength (uV's): avg work 17.1, avg rest 12.9. Long Holds: 10 reps strength (uV's): avg work 17.6, avg rest 7.3. 20 rep s strength (uV's): avg work 17.3, avg rest 6.8. PT-OP-J Posture/Palpation/Skin Start: 12/03/23 18:57 Freq: Status: Active Protocol: Document 12/08/23 07:32 LRN (Rec: 12/08/23 08:16 LRN [id number]) Posture Evaluation Position Standing Pelvis Posture (L) PSIS Posterior Knee Posture (L) Genu Valgus,(R) Genu Valgus Foot Arch (L) High Arch,(R) Medium Arch Comments Posture Comments Straightened upper T/S, umbilcus shifted R. PT-OP-K Range of Motion Start: 12/03/23 18:57 Freq: Status: Active Protocol: Document 12/29/23 09:50 LRN (Rec: 12/29/23 10:45 LRN [id number]) Hip Goniometric Range of Motion Hip Right Passive Testing Position Supine Internal Rotation 20 External Rotation 70 Left Passive Testing Position Supine Internal Rotation 20 External Rotation 70 PT-OP-M Strength Start: 12/03/23 18:57 Freq: Status: Active Protocol: Document 12/08/23 07:32 LRN (Rec: 12/08/23 08:16 LRN [id number]) Trunk Strength Trunk Manual Muscle Testing Core Stabilization Generally 4+/5, mild loss of rotational stability with MMT of hips. Hip Strength Hip Manual Muscle Testing Right Comments All muscle groups 5/5 Left Comments All muscle groups 5/5 PT-OP-Q Treatments Start: 12/03/23 18:57 Freq: Status: Active Protocol: Document 12/29/23 09:50 LRN (Rec: 12/29/23 10:45 LRN [id number]) Therapeutic Exercises Supine Exercises Long Hold Kegel Reps/Minutes 10 SH/10 SR x 20 Comments Cuing to not hold breath & use substitute ms. Quick Kegel Reps/Minutes 2 SH/2SR x 20 Comments Cuing to not hold breath & use substitute ms. PF resting Supine Exercise Name Pt training for resting Comments 4.2 uV's Fig 4 Side left Reps/Minutes 3' Lateral Hip stretch Side bilateral Reps/Minutes 60 SH x 1 Comments Extra time taken to determine max tolerated stretch. Piriformis stretch Supine Exercise Name Ankle of over knee>Knee towards chest. Side bilateral Reps/Minutes 6' Sitting Exercises SL L hip AD stretch Side left Reps/Minutes 1' x 2 Therapeutic Activity Therapeutic Activity Coordination of Kegel/Breath with transfers Name Reviewed with transfers Reps/Minutes 1' Self-Care/Home Management Treatment Education Patient Education Safety Other Education Educated the pt in physiology of bladder and sphincter muscles and their coordinated effort when voiding, and discussed with pt need to urinate within first urge. Activities Self-Care/Home Management Activities Issued & reviewed Bladder retraining to use as urge deference technique. Pt to try voiding if her time between void is >4 hrs, instead of trying to wait to get home. PT-OP-T Assessment and Plan Start: 12/03/23 18:57 Freq: Status: Active Protocol: Document 12/29/23 09:50 LRN (Rec: 12/29/23 10:45 LRN [id number]) Physical Therapy Assessment Goals Three Impairment Urinary leakage with sneezing, lifting and jumping. Short Term Goal (STG) Eliminate urinary leakage with sneezing, modifying method of sneezing. STG Duration 01/22/24 [place] Guide Goal (LTG) Eliminate urinary leakage with lifting and minimize with jumping. LTG Duration 03/04/24 Two Impairment Pain with intercourse Short Term Goal (STG) Pt will be educated and be able to determine the best position for intercourse to minimize the pain and tissue irritation. 12/22/23: Reviewed recommendations of positional stretch with hips on pillows and inner thigh stretch prior to intercourse. STG Duration 01/22/24 progressed 12/22/23. [place] Guide Goal (LTG) Eliminate Pelvic pain with intercourse. LTG Duration 03/04/24 One Impairment Pt lacks appropriate self care HEP. Short Term Goal (STG) Education in proper methods for transfer with coordination of breathing, PF contractions , and proper vulvar/genital care. 12/22/23: Educated w/handout issued: Transfers & discussed ADLs with breath/Kegel. STG Duration 01/22/24 progressed 12/22/23 (need educ proper vulvar/ genital care) [place] Guide Goal (LTG) Pt will be independent with a self care HEP of PF strengthening to improve blood flow and support to bladder, and hip ROM exercises. (late entry) Issued 12/08/23: HEP: Kegel ex's and discussed exercise of Quick Flicks, Long Holds and Aggravators. Issued HEP: Deep breathing exercise. 12/22/23: HEP: bilateral Piriformis & lateral hip stretch, and L ER(fig 4)/AD ( SL & adrián) stretch. I/S pt to do Kegels on wedge and to increase to 5 SH and with ball squeeze an added 2 SH. LTG Duration 03/04/24 progressed 12/22/23 Assessment Summary Assessment 38 yo female w/dysparenia ( deep thrust) & DESIREE (no constipation), since of children (10 & 7). No urinary leakage with job or jump ( only with double jumps). Cystocele, mild rectocele, urethra drop and possible enterocele (deep L side) is present. Tenderness was present on area surrounding the cervix, just inferior & to left of uterus. Today, very limited hip IR mobility, hip ER is symmetrical (AD not assessed). Pt not able to stop urinating while voiding because bladder is probably at capacity as she tends to ignore her urge and waits until she gets home to urinate when. Passive hip ER is equal bilaterally at 70 deg's, IR remains tight bilaterally at 20 deg's. Per Vemg assessment, pt has a normal resting tone but is not able to achieve it between PF contractions. Endurance holds , she fatigues a little after 2-3 secs and is closer to achieving resting tone when fatigued. Pt needs to learn to relax PF between contractions and maintain PF strength. Physical Therapy Plan Frequency and Duration Frequency of Treatment 1x/Week Duration of treatment (weeks) 12 Plan of Care Start Date 12/08/23 Plan of Care End Date 03/04/24 Next Visit Focus/Plan Next Note Type Treatment Note Next Visit Plan Check if pt can perform a Kegel (without use of substitute muscles). Review Therapeutic Exercise of: core rot (coord breathing), and cont hip IR stretching, maybe add active stretch. EMG PF relaxation between Kegels of long holds > Quick contractions. Educate pt ingenital/vulvar care and further body mechanics training, coordinating breath/Kegel Manual: assess response to sacral balancing and DRWilliam Improve abdominal soft tissue (uterus/bladder/urachus/GI) mobility.
--- NOTE | 2024-01-05 12:21 | PT.OTN ---
Current Diagnoses Other specified disorders of muscle (01/05/24) Stress incontinence (female) (male) (01/05/24) Physical Therapy Treatment Note PT-OP-A Visit Information Start: 12/03/23 18:57 Freq: Status: Active Protocol: Document 01/05/24 09:46 LRN (Rec: 01/05/24 10:48 LRN [id number]) Out-Patient Physical Therapy Visit Information Visit Information Visit Type Treatment Note Visit Start Time 09:46 Visit Stop Time : Visit Number Evaluation Information Evaluation Date 12/08/23 Precautions Precautions Pt reported 3rd degree tears with childbirth x2 (12/2013, ). PT-OP-B Current Condition Start: 12/03/23 18:57 Freq: Status: Active Protocol: Document 12/08/23 07:32 LRN (Rec: 12/08/23 08:16 LRN [id number]) Current Condition History of Current Condition Onset Date 10/2016 Current Complaints Pain w/entry and deep thrust and incontinence sneeze, jump, wgt lift. History of Current Condition Pt reports recieving therapy for stress incontinence and painful intercourse, after the of her 2nd child, that has gradually worsened and now fees she has to do something about it . 3 P, 2B, of vaginal deliveries. First he was 6#10 and pushed for 3 hrs, 2nd was 10#6oz and birthed in 30 minutes, both 3rd degree tears. STarted seeing a chiropractor because her hips are off L hip if forward and chiro pops it back in. Prior Treatments and Tests Pt repors she is intermittently seeing a chiropractor who works on moving her hip joint posteriorly. Developmental History Developmental History 12/2013, 10/2016 births. Treatment Goals Patient/Caregiver Goals Pt goal -not urinate when sneezing, jumping, lifting -have intercourse w/o pain. Prior Functional Status Baseline Function- Recreation/Hobbies Uncomfortable with intercoure in certain position. Current Functional Impairments (Reported) Functional Limitations- ADL's Painful intercourse no matter the position. 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 Therapy/Recovery Children ages 7 & 10. PT-OP-C Subjective Start: 12/03/23 18:57 Freq: Status: Active Protocol: Document 01/05/24 09:46 LRN (Rec: 01/05/24 10:48 LRN [id number]) OP-PT Subjective Patient Comments Patient Comments Tried pillow under legs and had discomfort but not pain. Did a lift and did not urinate. PT-OP-I Pelvic Floor Start: 12/03/23 18:57 Freq: Status: Active Protocol: Document 12/29/23 09:50 LRN (Rec: 12/29/23 10:45 LRN [id number]) Pelvic Floor Assessment SEMG (uV) Baseline 4.2 Quick Contraction 16.7 10 Second Contraction 17.6 Recruitment Pattern Good Relaxation Poor/Slow Holding Poor/Slow Stability of Hold Poor/Slow SEMG Stability of Rest Fair Comments Pelvic Floor Comments Positioning: Arms by sides, Legs on bolster. Quick Flicks: 10 reps strength (uV's): avg work 16.7, avg rest 13.5. 20 reps strength (uV's): avg work 17.1, avg rest 12.9. Long Holds: 10 reps strength (uV's): avg work 17.6, avg rest 7.3. 20 rep s strength (uV's): avg work 17.3, avg rest 6.8. PT-OP-J Posture/Palpation/Skin Start: 12/03/23 18:57 Freq: Status: Active Protocol: Document 12/08/23 07:32 LRN (Rec: 12/08/23 08:16 LRN [id number]) Posture Evaluation Position Standing Pelvis Posture (L) PSIS Posterior Knee Posture (L) Genu Valgus,(R) Genu Valgus Foot Arch (L) High Arch,(R) Medium Arch Comments Posture Comments Straightened upper T/S, umbilcus shifted R. PT-OP-K Range of Motion Start: 12/03/23 18:57 Freq: Status: Active Protocol: Document 12/29/23 09:50 LRN (Rec: 12/29/23 10:45 LRN [id number]) Hip Goniometric Range of Motion Hip Right Passive Testing Position Supine Internal Rotation 20 External Rotation 70 Left Passive Testing Position Supine Internal Rotation 20 External Rotation 70 PT-OP-M Strength Start: 12/03/23 18:57 Freq: Status: Active Protocol: Document 12/08/23 07:32 LRN (Rec: 12/08/23 08:16 LRN [id number]) Trunk Strength Trunk Manual Muscle Testing Core Stabilization Generally 4+/5, mild loss of rotational stability with MMT of hips. Hip Strength Hip Manual Muscle Testing Right Comments All muscle groups 5/5 Left Comments All muscle groups 5/5 PT-OP-Q Treatments Start: 12/03/23 18:57 Freq: Status: Active Protocol: Document 01/05/24 09:46 LRN (Rec: 01/05/24 10:48 LRN [id number]) Therapeutic Exercises Supine Exercises Wedge/Kegel Supine Exercise Name Pillow/bolster/partial endurance Equipment Used Pillow wedge, bolster Reps/Minutes 5SH/10 SR x 6, rest between contractions Standing Exercises Trunk SB/rot stretch Standing Exercise Name Stretch to R trunk Side left Reps/Minutes 3' Manual Therapy Treatment Soft Tissue Mobilization Lumbar trunk ms Body Location Wedge LEs/Trunk rotators Mobilization Type Strumming Intensity/Depth Moderate Body Position Supine Abdomen Body Location Wedge LEs/ABdomen (fascia around urachus, sm intenstine, bladder, uterus) Mobilization Type Myofascial Release,Sustained Pressure Intensity/Depth superficial to moderate Body Position Supine Comments fascia of bladder, uterus with R hip active ER/IR, & knee rolls to left, fascia of sm intestines with deep breathing . Self-Care/Home Management Treatment Activities Self-Care/Home Management Activities I/S pt to try hip stretches in addition to pillow under hips , along with foreplay before intercourse. Issued & reviewed HEP: stand L SB and sit L rot turnk stretch. PT-OP-T Assessment and Plan Start: 12/03/23 18:57 Freq: Status: Active Protocol: Document 01/05/24 09:46 LRN (Rec: 01/05/24 10:48 LRN [id number]) Physical Therapy Assessment Goals Three Impairment Urinary leakage with sneezing, lifting and jumping. Short Term Goal (STG) Eliminate urinary leakage with sneezing, modifying method of sneezing. STG Duration 01/22/24 [place]er Goal (LTG) Eliminate urinary leakage with lifting and minimize with jumping. 01/05/24: Pt reporting no urinary leakage with lifts. Holding on jumping as PT requested. LTG Duration 03/04/24 progressed 01/05/24. Two Impairment Pain with intercourse Short Term Goal (STG) Pt will be educated and be able to determine the best position for intercourse to minimize the pain and tissue irritation. 12/22/23: Reviewed recommendations of positional stretch with hips on pillows and inner thigh stretch prior to intercourse. 01/05/24: Pt reporting discomfort with intercourse, not pain if laying with pillows under hips to start. STG Duration 01/22/24 progressed 01/05/24. Assisted Goal (LTG) Eliminate Pelvic pain with intercourse. 01/05/24: Pt reporting discomfort, not pain with intercourse. No insertion pain. LTG Duration 03/04/24 progressed 01/05/24. One Impairment Pt lacks appropriate self care HEP. Short Term Goal (STG) Education in proper methods for transfer with coordination of breathing, PF contractions , and proper vulvar/genital care. 12/22/23: Educated w/handout issued: Transfers & discussed ADLs with breath/Kegel. STG Duration 01/22/24 progressed 12/22/23 (need educ proper vulvar/ genital care) [place] Goal (LTG) Pt will be independent with a self care HEP of PF strengthening to improve blood flow and support to bladder, and hip ROM exercises. (late entry) Issued 12/08/23: HEP: Kegel ex's and discussed exercise of Quick Flicks, Long Holds and Aggravators. Issued HEP: Deep breathing exercise. 12/22/23: HEP: bilateral Piriformis & lateral hip stretch, and L ER(fig 4)/AD ( SL & adrián) stretch. I/S pt to do Kegels on wedge and to increase to 5 SH and with ball squeeze an added 2 SH. 01/05/24: HEP: stand L SB and sit L rot turnk stretch. LTG Duration 03/04/24 progressed 01/05/24 Assessment Summary Assessment 38 yo female w/dysparenia ( deep thrust) & DESIREE (no constipation), since of children (10 & 7); urinary leakage with double jumps; Cystocele, mild rectocele, urethra drop and possible enterocele (deep L side). Pt is able to perform a Kegel with minimal substitution of TA, no sub of gluteals or hip ADs. Pt reporting doing lift at gym w/o leakage, hasn' t tried jumping. Pain less with intercourse, discomfort present. Pt is tight in L lateral trunk; uterus is R rotated and may be bound down on R side; fascial of urachus tight on R side and lacks sideglide of uterus to the R side; not able to correct. Pt having L anterior hip pain that is probably due to SI dysfunction. Sacral balancing is probably needed. Physical Therapy Plan Frequency and Duration Frequency of Treatment 1x/Week Duration of treatment (weeks) 12 Plan of Care Start Date 12/08/23 Plan of Care End Date 03/04/24 Next Visit Focus/Plan Next Note Type Treatment Note Next Visit Plan Assess/treat sacral balancing. Review issued HEP of trunk L SB/rot stretch & add LB stretch (Amado pose). Review therapeutic exercise of: core rot (coord breathing), and cont add hip IR active stretch. EMG PF relaxation between Kegels of long holds > Quick contractions. Educate pt in genital/vulvar care and further body mechanics training, coordinating breath/Kegel Manual: assess response to need for sacral balancing and DRWilliam Improve abdominal soft tissue (uterus/bladder/urachus/GI) mobility.
--- NOTE | 2024-01-19 10:17 | PT.OTN ---
Current Diagnoses Other specified disorders of muscle (01/19/24) Stress incontinence (female) (male) (01/19/24) Physical Therapy Treatment Note PT-OP-A Visit Information Start: 12/03/23 18:57 Freq: Status: Active Protocol: Document 01/19/24 09:00 LRN (Rec: 01/19/24 09:46 LRN [id number]) Out-Patient Physical Therapy Visit Information Visit Information Visit Type Treatment Note Visit Start Time 09:00 Visit Stop Time 09:44 Visit Number Evaluation Information Evaluation Date 12/08/23 Precautions Precautions Pt reported 3rd degree tears with childbirth x2 (12/2013, ). PT-OP-B Current Condition Start: 12/03/23 18:57 Freq: Status: Active Protocol: Document 12/08/23 07:32 LRN (Rec: 12/08/23 08:16 LRN [id number]) Current Condition History of Current Condition Onset Date 10/2016 Current Complaints Pain w/entry and deep thrust and incontinence sneeze, jump, wgt lift. History of Current Condition Pt reports recieving therapy for stress incontinence and painful intercourse, after the of her 2nd child, that has gradually worsened and now fees she has to do something about it . 3 P, 2B, of vaginal deliveries. First he was 6#10 and pushed for 3 hrs, 2nd was 10#6oz and birthed in 30 minutes, both 3rd degree tears. STarted seeing a chiropractor because her hips are off L hip if forward and chiro pops it back in. Prior Treatments and Tests Pt repors she is intermittently seeing a chiropractor who works on moving her hip joint posteriorly. Developmental History Developmental History 12/2013, 10/2016 births. Treatment Goals Patient/Caregiver Goals Pt goal -not urinate when sneezing, jumping, lifting -have intercourse w/o pain. Prior Functional Status Baseline Function- Recreation/Hobbies Uncomfortable with intercoure in certain position. Current Functional Impairments (Reported) Functional Limitations- ADL's Painful intercourse no matter the position. 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 Therapy/Recovery Children ages 7 & 10. PT-OP-C Subjective Start: 12/03/23 18:57 Freq: Status: Active Protocol: Document 01/19/24 09:00 LRN (Rec: 01/19/24 09:46 LRN [id number]) OP-PT Subjective Patient Comments Patient Comments Has been going to bathroom before the 5 hr yao. [place] with 1 pillow and didn't eat as much and no pain . Haven't leaked with sneezing, but jumped and leaked. Haven't noticed leakage with lifting of 70# dog. Patient Reported Progress Improving PT-OP-I Pelvic Floor Start: 12/03/23 18:57 Freq: Status: Active Protocol: Document 12/29/23 09:50 LRN (Rec: 12/29/23 10:45 LRN [id number]) Pelvic Floor Assessment SEMG (uV) Baseline 4.2 Quick Contraction 16.7 10 Second Contraction 17.6 Recruitment Pattern Good Relaxation Poor/Slow Holding Poor/Slow Stability of Hold Poor/Slow SEMG Stability of Rest Fair Comments Pelvic Floor Comments Positioning: Arms by sides, Legs on bolster. Quick Flicks: 10 reps strength (uV's): avg work 16.7, avg rest 13.5. 20 reps strength (uV's): avg work 17.1, avg rest 12.9. Long Holds: 10 reps strength (uV's): avg work 17.6, avg rest 7.3. 20 rep s strength (uV's): avg work 17.3, avg rest 6.8. PT-OP-J Posture/Palpation/Skin Start: 12/03/23 18:57 Freq: Status: Active Protocol: Document 12/08/23 07:32 LRN (Rec: 12/08/23 08:16 LRN [id number]) Posture Evaluation Position Standing Pelvis Posture (L) PSIS Posterior Knee Posture (L) Genu Valgus,(R) Genu Valgus Foot Arch (L) High Arch,(R) Medium Arch Comments Posture Comments Straightened upper T/S, umbilcus shifted R. PT-OP-K Range of Motion Start: 12/03/23 18:57 Freq: Status: Active Protocol: Document 12/29/23 09:50 LRN (Rec: 12/29/23 10:45 LRN [id number]) Hip Goniometric Range of Motion Hip Right Passive Testing Position Supine Internal Rotation 20 External Rotation 70 Left Passive Testing Position Supine Internal Rotation 20 External Rotation 70 PT-OP-M Strength Start: 12/03/23 18:57 Freq: Status: Active Protocol: Document 12/08/23 07:32 LRN (Rec: 12/08/23 08:16 LRN [id number]) Trunk Strength Trunk Manual Muscle Testing Core Stabilization Generally 4+/5, mild loss of rotational stability with MMT of hips. Hip Strength Hip Manual Muscle Testing Right Comments All muscle groups 5/5 Left Comments All muscle groups 5/5 PT-OP-Q Treatments Start: 12/03/23 18:57 Freq: Status: Active Protocol: Document 01/19/24 09:00 LRN (Rec: 01/19/24 09:46 LRN [id number]) Therapeutic Exercises Standing Exercises Trunk Rot Standing Exercise Name Press outs w/step outs & static trunk rot Side bilateral Equipment Used L2 TB Reps/Minutes 15' Postural correction Standing Exercise Name Wall standing and in front of mirror training. Reps/Minutes 3' Active hip IR stretch Side bilateral Reps/Minutes 4' Paloff Press Standing Exercise Name Exhale on exertional punch out . Side bilateral Equipment Used L2TB Reps/Minutes 20x Comments Extra time forcorrecting posture to start, cues for TA tight and breathwork Trunk SB/rot stretch Standing Exercise Name Stretch to R trunk Side left Reps/Minutes 3' Comments Cued to breath. Other Exercises Piriformis on floor Other Exercise Name Sitting on leg in ER position and opp leg in extension behind. Side bilateral Reps/Minutes 4' Hip flexor stretch Other Exercise Name 1/2 kneel Side bilateral Reps/Minutes 4' Self-Care/Home Management Treatment Education Other Education Pt education in changes in posture through pregancy and correct standing/sitting posture. Activities Self-Care/Home Management Activities Issued & reviewed HEP: Child' s Pose, Hip IR stretch sitting (one leg on table) and swinging foot inward (also to be done actively). Paloff Press, Martha trunk rot & trunk rot, supine LTR. [place] issued for proper sit/ stand posture and postural changes with . PT-OP-T Assessment and Plan Start: 12/03/23 18:57 Freq: Status: Active Protocol: Document 01/19/24 09:00 LRN (Rec: 01/19/24 09:46 LRN [id number]) Physical Therapy Assessment Goals Three Impairment Urinary leakage with sneezing, lifting and jumping. Short Term Goal (STG) Eliminate urinary leakage with sneezing, modifying method of sneezing. 01/18/24: No leakage noted with sneezing. STG Duration 01/22/24 (01/18/24: MET GOAL) Machine Cage Maker Goal (LTG) Eliminate urinary leakage with lifting and minimize with jumping. 01/05/24: Pt reporting no urinary leakage with lifts. Holding on jumping as PT requested. 01/18/24: Able to lift 70# dog w/o leakage. Leaking with jumping. LTG Duration 03/04/24 progressed 01/18/24. Two Impairment Pain with intercourse Short Term Goal (STG) Pt will be educated and be able to determine the best position for intercourse to minimize the pain and tissue irritation. 12/22/23: Reviewed recommendations of positional stretch with hips on pillows and inner thigh stretch prior to intercourse. 01/05/24: Pt reporting discomfort with intercourse, not pain if laying with pillows under hips to start. 01/12/24: Pt reports 2 episodes of intercourse was w/ o pain, but 3rd time had post intercourse pain of L abdominal pain, probably associated to have eaten just prior to intercourse. 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 STG Duration 01/22/24 (01/19/24: MET GOAL) Mcc Goal (LTG) Eliminate Pelvic pain with intercourse. 01/05/24: Pt reporting discomfort, not pain with intercourse. No insertion pain. 01/12/24: 2 times w/o pain, 1x/with L abdominal pain. 01/18/24: No pain with intercourse. LTG Duration 03/04/24 (01/19/24: MET GOAL ) One Impairment Pt lacks appropriate self care HEP. Short Term Goal (STG) Education in proper methods for transfer with coordination of breathing, PF contractions , and proper vulvar/genital care. 12/22/23: Educated w/handout issued: Transfers & discussed ADLs with breath/Kegel. STG Duration 01/22/24 progressed 12/22/23 (need educ proper vulvar/ genital care) Machine Cage Maker Goal (LTG) Pt will be independent with a self care HEP of PF strengthening to improve blood flow and support to bladder, and hip ROM exercises. (late entry) Issued 12/08/23: HEP: Kegel ex's and discussed exercise of Quick Flicks, Long Holds and Aggravators. Issued HEP: Deep breathing exercise. 12/22/23: HEP: bilateral Piriformis & lateral hip stretch, and L ER(fig 4)/AD ( SL & adrián) stretch. I/S pt to do Kegels on wedge and to increase to 5 SH and with ball squeeze an added 2 SH. 01/05/24: HEP: stand L SB and sit L rot turnk stretch. 01/12/24: HEP: Child's Pose stretch and handout for mindfullness. 01/19/24: HEP: Child's Pose, Hip IR stretch sitting (one leg on table) and swinging foot inward (also to be done actively). Paloff Press, Martha trunk rot & trunk rot, supine LTR. Handouts for Proper sit /stand posture and postural changes with . LTG Duration 03/04/24 progressed 01/19/24 Assessment Summary Assessment 38 yo female w/dysparenia ( deep thrust) & DESIREE (no constipation), since of children (10 & 7); urinary leakage with double jumps; Cystocele, mild rectocele, urethra drop and possible enterocele (deep L side). Today she indicates a positive response to therapy for eliminating pain with intercourse through positional stretches and mindfulness and deep breathing. She is able to do child's pose w/o difficulty and has good recall of trunk stretches. Pt doing other stretches (floor Piriformis, 1/2 kneel hip flexor stretch). Good understanding of active hip IR stretch & core rot strengthening w/coordinated breathing. Physical Therapy Plan Frequency and Duration Frequency of Treatment 1x/Week Duration of treatment (weeks) 12 Plan of Care Start Date 12/08/23 Plan of Care End Date 03/04/24 Next Visit Focus/Plan Next Note Type Treatment Note Next Visit Plan Next: (overall progression to jumping w/o leakage). Educate pt in genital/vulvar care and further body mechanics training, coordinating breath/ Kegel. Review therapeutic exercise of: hip IR active stretch and progress core rot (coord breathing) strengthening. Review standing/sitting postures to correct for sway back posturing in standing. Assess/treat sacral balancing if needed. EMG PF relaxation between Kegels of long holds > Quick contractions. Improve abdominal soft tissue (uterus/bladder/urachus/GI) mobility. Manual: assess for
--- NOTE | 2024-02-15 17:46 | PT.OTN ---
Current Diagnoses Other specified disorders of muscle (02/15/24) Stress incontinence (female) (male) (02/15/24) Physical Therapy Treatment Note PT-OP-A Visit Information Start: 12/03/23 18:57 Freq: Status: Active Protocol: Document 02/15/24 11:35 LRN (Rec: 02/15/24 12:42 LRN [id number]) Out-Patient Physical Therapy Visit Information Visit Information Visit Type Treatment Note Visit Start Time 11:35 Visit Stop Time 12:20 Visit Number Evaluation Information Evaluation Date 12/08/23 Precautions Precautions Pt reported 3rd degree tears with childbirth x2 (12/2013, ). PT-OP-B Current Condition Start: 12/03/23 18:57 Freq: Status: Active Protocol: Document 12/08/23 07:32 LRN (Rec: 12/08/23 08:16 LRN [id number]) Current Condition History of Current Condition Onset Date 10/2016 Current Complaints Pain w/entry and deep thrust and incontinence sneeze, jump, wgt lift. History of Current Condition Pt reports recieving therapy for stress incontinence and painful intercourse, after the of her 2nd child, that has gradually worsened and now fees she has to do something about it . 3 P, 2B, of vaginal deliveries. First he was 6#10 and pushed for 3 hrs, 2nd was 10#6oz and birthed in 30 minutes, both 3rd degree tears. STarted seeing a chiropractor because her hips are off L hip if forward and chiro pops it back in. Prior Treatments and Tests Pt repors she is intermittently seeing a chiropractor who works on moving her hip joint posteriorly. Developmental History Developmental History 12/2013, 10/2016 births. Treatment Goals Patient/Caregiver Goals Pt goal -not urinate when sneezing, jumping, lifting -have intercourse w/o pain. Prior Functional Status Baseline Function- Recreation/Hobbies Uncomfortable with intercoure in certain position. Current Functional Impairments (Reported) Functional Limitations- ADL's Painful intercourse no matter the position. 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 Therapy/Recovery Children ages 7 & 10. PT-OP-C Subjective Start: 12/03/23 18:57 Freq: Status: Active Protocol: Document 02/15/24 11:35 LRN (Rec: 02/15/24 12:42 LRN [id number]) OP-PT Subjective Patient Comments Patient Comments Hasn't leakaged but has avoided jumping, doing instead toe tap hops w/o leakage. Was able to lift a heavy wgt during exercise but didn't leak from squat to stand. Had a mole removed in the chest last TH and will get stitches out in a week. Is not supposed to lift or jog/jerk to disrupt stitches. Will get stitches out a week from today. PT-OP-I Pelvic Floor Start: 12/03/23 18:57 Freq: Status: Active Protocol: Document 12/29/23 09:50 LRN (Rec: 12/29/23 10:45 LRN [id number]) Pelvic Floor Assessment SEMG (uV) Baseline 4.2 Quick Contraction 16.7 10 Second Contraction 17.6 Recruitment Pattern Good Relaxation Poor/Slow Holding Poor/Slow Stability of Hold Poor/Slow SEMG Stability of Rest Fair Comments Pelvic Floor Comments Positioning: Arms by sides, Legs on bolster. Quick Flicks: 10 reps strength (uV's): avg work 16.7, avg rest 13.5. 20 reps strength (uV's): avg work 17.1, avg rest 12.9. Long Holds: 10 reps strength (uV's): avg work 17.6, avg rest 7.3. 20 rep s strength (uV's): avg work 17.3, avg rest 6.8. PT-OP-J Posture/Palpation/Skin Start: 12/03/23 18:57 Freq: Status: Active Protocol: Document 12/08/23 07:32 LRN (Rec: 12/08/23 08:16 LRN [id number]) Posture Evaluation Position Standing Pelvis Posture (L) PSIS Posterior Knee Posture (L) Genu Valgus,(R) Genu Valgus Foot Arch (L) High Arch,(R) Medium Arch Comments Posture Comments Straightened upper T/S, umbilcus shifted R. PT-OP-K Range of Motion Start: 12/03/23 18:57 Freq: Status: Active Protocol: Document 12/29/23 09:50 LRN (Rec: 12/29/23 10:45 LRN [id number]) Hip Goniometric Range of Motion Hip Right Passive Testing Position Supine Internal Rotation 20 External Rotation 70 Left Passive Testing Position Supine Internal Rotation 20 External Rotation 70 PT-OP-M Strength Start: 12/03/23 18:57 Freq: Status: Active Protocol: Document 12/08/23 07:32 LRN (Rec: 12/08/23 08:16 LRN [id number]) Trunk Strength Trunk Manual Muscle Testing Core Stabilization Generally 4+/5, mild loss of rotational stability with MMT of hips. Hip Strength Hip Manual Muscle Testing Right Comments All muscle groups 5/5 Left Comments All muscle groups 5/5 PT-OP-Q Treatments Start: 12/03/23 18:57 Freq: Status: Active Protocol: Document 02/15/24 11:35 LRN (Rec: 02/15/24 12:42 LRN [id number]) Therapeutic Exercises Supine Exercises Trunk Rot Supine Exercise Name Trunk Rot: Sup, feet on 90/90 table, PT standing to hold TB Side bilateral Equipment Used Lev 3 TB Reps/Minutes 10x 3 Comments Extra time to determ max kirstin positioning and for coordinating breathwork Lateral Hip stretch Side bilateral Reps/Minutes 60 SH x 1 Comments Extra time taken to determine max tolerated stretch. Piriformis stretch Side bilateral Reps/Minutes 60 SH x 1 Comments Extra time taken to determine max tolerated stretch. Other Exercises Child's Pose Reps/Minutes 10 SH x 10 Comments Cued to breath and relax PF/LB Self-Care/Home Management Treatment Education Other Education Pt education in General vulvar and Hygiene care. Discussed pt's goals, treatment (trunk rotators, progressive PF loading for jumping), modification of ex's (water vs land jumping), and plan of care (POC), pt agreeable to cont goals & treatment with reduction of visits to every 2-4 wks in Mar /Apr for new POC next visit. Discussed use of foreplay to help pt not be so guarded and tense with intercourse. Activities Self-Care/Home Management Activities Handout issued & reviewed: General Vulvar Care & Genital Hygiene for Women. PT-OP-T Assessment and Plan Start: 12/03/23 18:57 Freq: Status: Active Protocol: Document 02/15/24 11:35 LRN (Rec: 02/15/24 12:42 LRN [id number]) Physical Therapy Assessment Goals Three Impairment Urinary leakage with sneezing, lifting and jumping. Short Term Goal (STG) Eliminate urinary leakage with sneezing, modifying method of sneezing. 01/18/24: No leakage noted with sneezing. STG Duration 01/22/24 (01/18/24: MET GOAL) Preparation Room Worker Goal (LTG) Eliminate urinary leakage with lifting and minimize with jumping. 01/05/24: Pt reporting no urinary leakage with lifts. Holding on jumping as PT requested. 01/18/24: Able to lift 70# dog w/o leakage. Leaking with jumping. 01/16/24: Able to lift heavy weight w/o urinary leakage. LTG Duration 03/04/24 progressed 02/15/24 (need to min leak w/jumping) Two Impairment Pain with intercourse Short Term Goal (STG) Pt will be educated and be able to determine the best position for intercourse to minimize the pain and tissue irritation. 12/22/23: Reviewed recommendations of positional stretch with hips on pillows and inner thigh stretch prior to intercourse. 01/05/24: Pt reporting discomfort with intercourse, not pain if laying with pillows under hips to start. 01/12/24: Pt reports 2 episodes of intercourse was w/ o pain, but 3rd time had post intercourse pain of L abdominal pain, probably associated to have eaten just prior to intercourse. 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 STG Duration 01/22/24 (01/19/24: MET GOAL) Prison Goal (LTG) Eliminate Pelvic pain with intercourse. 01/05/24: Pt reporting discomfort, not pain with intercourse. No insertion pain. 01/12/24: 2 times w/o pain, 1x/with L abdominal pain. 01/18/24: No pain with intercourse. LTG Duration 03/04/24 (01/19/24: MET GOAL ) One Impairment Pt lacks appropriate self care HEP. Short Term Goal (STG) Education in proper methods for transfer with coordination of breathing, PF contractions , and proper vulvar/genital care. 12/22/23: Educated w/handout issued: Transfers & discussed ADLs with breath/Kegel. 02/15/24: Pt educated in proper vulvar/genital care. STG Duration 01/22/24 (02/15/24: MET GOAL) Preparation Room Worker Goal (LTG) Pt will be independent with a self care HEP of PF strengthening to improve blood flow and support to bladder, and hip ROM exercises. (late entry) Issued 12/08/23: HEP: Kegel ex's and discussed exercise of Quick Flicks, Long Holds and Aggravators. Issued HEP: Deep breathing exercise. 12/22/23: HEP: bilateral Piriformis & lateral hip stretch, and L ER(fig 4)/AD ( SL & adrián) stretch. I/S pt to do Kegels on wedge and to increase to 5 SH and with ball squeeze an added 2 SH. 01/05/24: HEP: stand L SB and sit L rot turnk stretch. 01/12/24: HEP: Child's Pose stretch and handout for mindfullness. 01/19/24: HEP: Child's Pose, Hip IR stretch sitting (one leg on table) and swinging foot inward (also to be done actively). Paloff Press, Martha trunk rot & trunk rot, supine LTR. Handouts for Proper sit /stand posture and postural changes with . LTG Duration 03/04/24 progressed 01/19/24 Assessment Summary Assessment Pt leaking only with jumping, but she can cough and toe tap w/o urinary leakage. Pt wanting to be able to jump w/o leakage, but willing to modify activities of jumping ( pool vs land). Pt hasn't had intercourse again. Physical Therapy Plan Frequency and Duration Frequency of Treatment 1x/Week Duration of treatment (weeks) 12 Plan of Care Start Date 12/08/23 Plan of Care End Date 03/04/24 Next Visit Focus/Plan Next Note Type Treatment Note Next Visit Plan Next: Manual: Review therapeutic exercise of: hip IR active stretch, progress core rot (coord breathing) strengthening. Assess/treat for DR and if needed, sacral balancing. POC : (overall progression to jumping w/o leakage). Educate/review further body mechanics training, coordinating breath/Kegel. Review standing/sitting postures to correct for sway back posturing in standing. ?EMG PF relaxation between Kegels, ABs, of long holds > Quick contractions. Improve abdominal soft tissue (uterus/bladder/urachus/GI) mobility.
--- NOTE | 2024-02-22 18:26 | PT.OTN ---
Current Diagnoses Other specified disorders of muscle (02/22/24) Stress incontinence (female) (male) (02/22/24) Physical Therapy Treatment Note PT-OP-A Visit Information Start: 12/03/23 18:57 Freq: Status: Active Protocol: Document 02/22/24 09:01 LRN (Rec: 02/22/24 09:52 LRN [id number]) Out-Patient Physical Therapy Visit Information Visit Information Visit Type Progress Note Visit Start Time 09:01 Visit Stop Time 09:39 Visit Number Evaluation Information Evaluation Date 12/08/23 Precautions Precautions Pt reported 3rd degree tears with childbirth x2 (12/2013, ). PT-OP-B Current Condition Start: 12/03/23 18:57 Freq: Status: Active Protocol: Document 12/08/23 07:32 LRN (Rec: 12/08/23 08:16 LRN [id number]) Current Condition History of Current Condition Onset Date 10/2016 Current Complaints Pain w/entry and deep thrust and incontinence sneeze, jump, wgt lift. History of Current Condition Pt reports recieving therapy for stress incontinence and painful intercourse, after the of her 2nd child, that has gradually worsened and now fees she has to do something about it . 3 P, 2B, of vaginal deliveries. First he was 6#10 and pushed for 3 hrs, 2nd was 10#6oz and birthed in 30 minutes, both 3rd degree tears. STarted seeing a chiropractor because her hips are off L hip if forward and chiro pops it back in. Prior Treatments and Tests Pt repors she is intermittently seeing a chiropractor who works on moving her hip joint posteriorly. Developmental History Developmental History 12/2013, 10/2016 births. Treatment Goals Patient/Caregiver Goals Pt goal -not urinate when sneezing, jumping, lifting -have intercourse w/o pain. Prior Functional Status Baseline Function- Recreation/Hobbies Uncomfortable with intercoure in certain position. Current Functional Impairments (Reported) Functional Limitations- ADL's Painful intercourse no matter the position. 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 Therapy/Recovery Children ages 7 & 10. PT-OP-C Subjective Start: 12/03/23 18:57 Freq: Status: Active Protocol: Document 02/22/24 09:01 LRN (Rec: 02/22/24 09:52 LRN [id number]) OP-PT Subjective Patient Comments Patient Comments No change with leakage of exercise. Having no pain with intercourse if positioned on pillows Patient Questionnaires Pelvic Pain and Urgency/Frequency Patient Symptom Scale Pelvic Pain Score 4 PT-OP-I Pelvic Floor Start: 12/03/23 18:57 Freq: Status: Active Protocol: Document 02/22/24 09:01 LRN (Rec: 02/22/24 09:52 LRN [id number]) Pelvic Floor Assessment Pelvic Clock Pelvic Clock 12-3 Tenderness Pelvic Clock 3-6 Tenderness SEMG (uV) Baseline 3.5 Quick Contraction 6 10 Second Contraction 10 Recruitment Pattern Good Relaxation Fair Holding Fair Stability of Hold Good SEMG Stability of Rest Good Contraction Ability Voluntary Contraction Moderate Voluntary Relaxation Weak Manual Muscle Testing Left 2 Manual Muscle Testing Right 3 Manual Muscle Testing Anterior 2 Manual Muscle Testing Posterior 3 Muscle Endurance (Seconds) 10 Number of Quick Contractions In 10 6 Seconds Comments Pelvic Floor Comments Endurance is 10 sec hold with retightening occuring at 2, 5, 6-10 secs. PT-OP-J Posture/Palpation/Skin Start: 12/03/23 18:57 Freq: Status: Active Protocol: Document 12/08/23 07:32 LRN (Rec: 12/08/23 08:16 LRN [id number]) Posture Evaluation Position Standing Pelvis Posture (L) PSIS Posterior Knee Posture (L) Genu Valgus,(R) Genu Valgus Foot Arch (L) High Arch,(R) Medium Arch Comments Posture Comments Straightened upper T/S, umbilcus shifted R. PT-OP-K Range of Motion Start: 12/03/23 18:57 Freq: Status: Active Protocol: Document 02/22/24 09:01 LRN (Rec: 02/22/24 09:52 LRN [id number]) Hip Goniometric Range of Motion Hip Right Passive Testing Position Supine Internal Rotation 20 External Rotation 75 Left Passive Testing Position Supine Internal Rotation 15 External Rotation 75 PT-OP-M Strength Start: 12/03/23 18:57 Freq: Status: Active Protocol: Document 12/08/23 07:32 LRN (Rec: 12/08/23 08:16 LRN [id number]) Trunk Strength Trunk Manual Muscle Testing Core Stabilization Generally 4+/5, mild loss of rotational stability with MMT of hips. Hip Strength Hip Manual Muscle Testing Right Comments All muscle groups 5/5 Left Comments All muscle groups 5/5 PT-OP-Q Treatments Start: 12/03/23 18:57 Freq: Status: Active Protocol: Document 02/22/24 09:01 LRN (Rec: 02/22/24 18:04 LRN [id number]) Therapeutic Exercises Supine Exercises Long Hold Kegel Supine Exercise Name Long hold Kegels Reps/Minutes 10 SH/20 SR x 3 Comments Avg work: 14.6 mV's (previous 19.5 mV's), Abdoms 1.4 mV's. Quick Kegel Supine Exercise Name Quick Contractions Reps/Minutes 2 SH/4 SR x 20 Comments Avg work: 15.4 mV's ( previous 12.6 mV's), abdoms 0. 8 mV's. PF resting Supine Exercise Name Resting btn quick and long hold contractions. Reps/Minutes 2' Comments 3.5 mV's Lateral Hip stretch Side bilateral Reps/Minutes 60 SH x 1 each Comments Extra time taken to determine max tolerated stretch. Piriformis stretch Side bilateral Reps/Minutes 60 SH x 1, each Comments Extra time taken to determine max tolerated stretch. Neuro Re-Education Treatment Other Activities Coord trng Kegel/ABdoms Details Coordination training of isolating PF contraction from Abdom contraction Reps/Duration 24' Comments Supine, using deep breathing and focusing on not tightening Abdoms. Pt was able to do her PF contraction while minimizing abdominal contractions in supine. Self-Care/Home Management Treatment Education Other Education Discussed best position for intercourse and other possible positions to try but keeping hips elevated above bladder. PT-OP-T Assessment and Plan Start: 12/03/23 18:57 Freq: Status: Active Protocol: Document 02/22/24 09:01 LRN (Rec: 02/22/24 09:52 LRN [id number]) Physical Therapy Assessment Rehab Potential Rehabilitation Potential Good Evaluation Complexity Number of Personal Factors/Comorbidities 1-2 Number of Body Systems Impaired 4 or More Clinical Presentation at Evaluation Evolving Impairments Impairments Activity Tolerance, Coordination,ROM,Soft Tissue Mobility,Strength Goals Three Impairment Urinary leakage with sneezing, lifting and jumping. Short Term Goal (STG) Eliminate urinary leakage with sneezing, modifying method of sneezing. 01/18/24: No leakage noted with sneezing. STG Duration 01/22/24 (01/18/24: MET GOAL) Glaze Wiper Goal (LTG) Eliminate urinary leakage with lifting and minimize with jumping. 01/05/24: Pt reporting no urinary leakage with lifts. Holding on jumping as PT requested. 01/18/24: Able to lift 70# dog w/o leakage. Leaking with jumping. 01/16/24: Able to lift heavy weight w/o urinary leakage. LTG Duration 04/08/24 progressed 02/15/24 (need to min leak w/jumping) Two Impairment Pain with intercourse Short Term Goal (STG) Pt will be educated and be able to determine the best position for intercourse to minimize the pain and tissue irritation. 12/22/23: Reviewed recommendations of positional stretch with hips on pillows and inner thigh stretch prior to intercourse. 01/05/24: Pt reporting discomfort with intercourse, not pain if laying with pillows under hips to start. 01/12/24: Pt reports 2 episodes of intercourse was w/ o pain, but 3rd time had post intercourse pain of L abdominal pain, probably associated to have eaten just prior to intercourse. 01/18/24: Pt reporting no pain with intercourse using 1 vs 2 pillows under hips and perioperative assistant meal before. STG Duration 01/22/24 (01/19/24: MET GOAL) Senior Living Goal (LTG) Eliminate Pelvic pain with intercourse. 01/05/24: Pt reporting discomfort, not pain with intercourse. No insertion pain. 01/12/24: 2 times w/o pain, 1x/with L abdominal pain. 01/18/24: No pain with intercourse. LTG Duration 03/04/24 (01/19/24: MET GOAL ) One Impairment Pt lacks appropriate self care HEP. Short Term Goal (STG) Education in proper methods for transfer with coordination of breathing, PF contractions , and proper vulvar/genital care. 12/22/23: Educated w/handout issued: Transfers & discussed ADLs with breath/Kegel. 02/15/24: Pt educated in proper vulvar/genital care. STG Duration 01/22/24 (02/15/24: MET GOAL) Senior Living Goal (LTG) Pt will be independent with a self care HEP of PF strengthening to improve blood flow and support to bladder, and hip ROM exercises. (late entry) Issued 12/08/23: HEP: Kegel ex's and discussed exercise of Quick Flicks, Long Holds and Aggravators. Issued HEP: Deep breathing exercise. 12/22/23: HEP: bilateral Piriformis & lateral hip stretch, and L ER(fig 4)/AD ( SL & adrián) stretch. I/S pt to do Kegels on wedge and to increase to 5 SH and with ball squeeze an added 2 SH. 01/05/24: HEP: stand L SB and sit L rot turnk stretch. 01/12/24: HEP: Child's Pose stretch and handout for mindfullness. 01/19/24: HEP: Child's Pose, Hip IR stretch sitting (one leg on table) and swinging foot inward (also to be done actively). Paloff Press, Martha trunk rot & trunk rot, supine LTR. Handouts for Proper sit /stand posture and postural changes with . LTG Duration 04/08/24 progressed 01/19/24 Assessment Summary Assessment 38 yo female intially seen for dysparenia (w/deep thrust) & DESIREE (no constipation), since of children (10 & 7); urinary leakage with double jumps; Cystocele, mild rectocele, urethra drop and possible enterocele (deep L side). Pt presents with endurance weakness, and good strength with quick contractions. Her L lateral wall and anterior PF is weak at 2/5, and she has very tight L hip IR's. The pt's therapy has been slow and prolonged due to scheduling difficulties both at the clinic and by pt due to holiday schedules. The pt would benefit from continued skilled physical therapy to further improve her PF strength and endurance to put her on a course of eventually sefl care progression to be able to tolerate jumping activities with decrease in treatments in March from 1x/wk to 1x/2wks . Physical Therapy Plan Frequency and Duration Frequency of Treatment 1x/Week Duration of treatment (weeks) 6 Plan of Care Start Date 02/22/24 Plan of Care End Date 04/08/24 Therapeutic Interventions Therapeutic Interventions Coordination Training,Home Exercise Program,Joint Mobilizations,Manual Therapy, Neuromuscular Re-education, Self-Care/Home Management,Soft Tissue Mobilization, Therapeutic Activities, Therapeutic Exercises Next Visit Focus/Plan Next Note Type Treatment Note Next Visit Plan 5 wks: DC to HEP of progression towards jumping. Next: Manual: Review therapeutic exercise of: L hip IR active/passive stretch, progress core rot (coord breathing) strengthening & Assess/treat for DR and if needed & sacral balancing. Review standing/sitting postures to correct for sway back posturing in standing. Cont: EMG PF relaxation between Kegels & ABs, Focus on Long holds. POC: (overall progression to jumping w/o leakage).
--- NOTE | 2024-02-22 18:56 | PT.OPPOC ---
Physical, Occupational & Speech Therapy At [facility] Current Diagnoses Other specified disorders of muscle (02/22/24) Stress incontinence (female) (male) (02/22/24) Visit Care Team Role Provider Type Sandy Sandoval DO Attending Provider Physician Family Provider Primary Care Provider Referring Provider Specialty: Family Practice Address: [address] [place] [address], [address], [facility] Email: [email or web address] Plan Of Care PT-OP-B Current Condition Start: 12/03/23 18:57 Freq: Status: Active Protocol: Document 12/08/23 07:32 LRN (Rec: 12/08/23 08:16 LRN [id number]) Current Condition History of Current Condition Onset Date 10/2016 Current Complaints Pain w/entry and deep thrust and incontinence sneeze, jump, wgt lift. History of Current Condition Pt reports recieving therapy for stress incontinence and painful intercourse, after the of her 2nd child, that has gradually worsened and now fees she has to do something about it . 3 P, 2B, of vaginal deliveries. First he was 6#10 and pushed for 3 hrs, 2nd was 10#6oz and birthed in 30 minutes, both 3rd degree tears. STarted seeing a chiropractor because her hips are off L hip if forward and chiro pops it back in. Prior Treatments and Tests Pt repors she is intermittently seeing a chiropractor who works on moving her hip joint posteriorly. Developmental History Developmental History 12/2013, 10/2016 births. Treatment Goals Patient/Caregiver Goals Pt goal -not urinate when sneezing, jumping, lifting -have intercourse w/o pain. Prior Functional Status Baseline Function- Recreation/Hobbies Uncomfortable with intercoure in certain position. Current Functional Impairments (Reported) Functional Limitations- ADL's Painful intercourse no matter the position. 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 Therapy/Recovery Children ages 7 & 10. PT-OP-T Assessment and Plan Start: 12/03/23 18:57 Freq: Status: Active Protocol: Document 02/22/24 09:01 CHRISTIANON (Rec: 02/22/24 09:52 LRN [id number]) Physical Therapy Assessment Rehab Potential Rehabilitation Potential Good Evaluation Complexity Number of Personal Factors/Comorbidities 1-2 Number of Body Systems Impaired 4 or More Clinical Presentation at Evaluation Evolving Impairments Impairments Activity Tolerance, Coordination,ROM,Soft Tissue Mobility,Strength Goals Three Impairment Urinary leakage with sneezing, lifting and jumping. Short Term Goal (STG) Eliminate urinary leakage with sneezing, modifying method of sneezing. 01/18/24: No leakage noted with sneezing. STG Duration 01/22/24 (01/18/24: MET GOAL) Group Home Goal (LTG) Eliminate urinary leakage with lifting and minimize with jumping. 01/05/24: Pt reporting no urinary leakage with lifts. Holding on jumping as PT requested. 01/18/24: Able to lift 70# dog w/o leakage. Leaking with jumping. 01/16/24: Able to lift heavy weight w/o urinary leakage. LTG Duration 04/08/24 progressed 02/15/24 (need to min leak w/jumping) Two Impairment Pain with intercourse Short Term Goal (STG) Pt will be educated and be able to determine the best position for intercourse to minimize the pain and tissue irritation. 12/22/23: Reviewed recommendations of positional stretch with hips on pillows and inner thigh stretch prior to intercourse. 01/05/24: Pt reporting discomfort with intercourse, not pain if laying with pillows under hips to start. 01/12/24: Pt reports 2 episodes of intercourse was w/ o pain, but 3rd time had post intercourse pain of L abdominal pain, probably associated to have eaten just prior to intercourse. 01/18/24: Pt reporting no pain with intercourse using 1 vs 2 pillows under hips and technology consultant meal before. STG Duration 01/22/24 (01/19/24: MET GOAL) Group Home Goal (LTG) Eliminate Pelvic pain with intercourse. 01/05/24: Pt reporting discomfort, not pain with intercourse. No insertion pain. 01/12/24: 2 times w/o pain, 1x/with L abdominal pain. 01/18/24: No pain with intercourse. LTG Duration 03/04/24 (01/19/24: MET GOAL ) One Impairment Pt lacks appropriate self care HEP. Short Term Goal (STG) Education in proper methods for transfer with coordination of breathing, PF contractions , and proper vulvar/genital care. 12/22/23: Educated w/handout issued: Transfers & discussed ADLs with breath/Kegel. 02/15/24: Pt educated in proper vulvar/genital care. 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 (late entry) Issued 12/08/23: HEP: Kegel ex's and discussed exercise of Quick Flicks, Long Holds and Aggravators. Issued HEP: Deep breathing exercise. 12/22/23: HEP: bilateral Piriformis & lateral hip stretch, and L ER(fig 4)/AD ( SL & adrián) stretch. I/S pt to do Kegels on wedge and to increase to 5 SH and with ball squeeze an added 2 SH. 01/05/24: HEP: stand L SB and sit L rot turnk stretch. 01/12/24: HEP: Child's Pose stretch and handout for mindfullness. 01/19/24: HEP: Child's Pose, Hip IR stretch sitting (one leg on table) and swinging foot inward (also to be done actively). Paloff Press, Martha trunk rot & trunk rot, supine LTR. Handouts for Proper sit /stand posture and postural changes with . LTG Duration 04/08/24 progressed 01/19/24 Assessment Summary Assessment 38 yo female intially seen for dysparenia (w/deep thrust) & DESIREE (no constipation), since of children (10 & 7); urinary leakage with double jumps; Cystocele, mild rectocele, urethra drop and possible enterocele (deep L side). Pt presents with endurance weakness, and good strength with quick contractions. Her L lateral wall and anterior PF is weak at 2/5, and she has very tight L hip IR's. The pt's therapy has been slow and prolonged due to scheduling difficulties both at the clinic and by pt due to holiday schedules. The pt would benefit from continued skilled physical therapy to further improve her PF strength and endurance to put her on a course of eventually sefl care progression to be able to tolerate jumping activities with decrease in treatments in March from 1x/wk to 1x/2wks . Physical Therapy Plan Frequency and Duration Frequency of Treatment 1x/Week Duration of treatment (weeks) 6 Plan of Care Start Date 02/22/24 Plan of Care End Date 04/08/24 Therapeutic Interventions Therapeutic Interventions Coordination Training,Home Exercise Program,Joint Mobilizations,Manual Therapy, Neuromuscular Re-education, Self-Care/Home Management,Soft Tissue Mobilization, Therapeutic Activities, Therapeutic Exercises Next Visit Focus/Plan Next Note Type Treatment Note Next Visit Plan 5 wks: DC to HEP of progression towards jumping. Next: Manual: Review therapeutic exercise of: L hip IR active/passive stretch, progress core rot (coord breathing) strengthening & Assess/treat for DR and if needed & sacral balancing. Review standing/sitting postures to correct for sway back posturing in standing. Cont: EMG PF relaxation between Kegels & ABs, Focus on Long holds. POC: (overall progression to jumping w/o leakage). Plan of Care Dates Plan of Care Start Date 02/22/24 Plan of Care End Date 04/08/24 Electronically Signed by: Elsa Licea, PT 02/22/24 3506 If you are in agreement with this Plan of Care, please return a signed and dated copy. I have reviewed this Plan of Care and certify that the skilled therapy services above are required to meet the patient?s needs. Physician Signature Date Printed Name and Credentials Clinical Instructor Signature Printed Name and Credentials
--- NOTE | 2024-06-16 15:36 | PT.OPDS ---
Current Diagnoses Other specified disorders of muscle (02/22/24) Stress incontinence (female) (male) (02/22/24) Visit Care Team Role Provider Type Sandy Sandoval DO Attending Provider Physician Family Provider Primary Care Provider Referring Provider Specialty: Family Practice Address: [address] [place] [address], [address], [address] Email: [email or web address] Visit Number Visit Number Discharge Summary PT-OP-B Current Condition Start: 12/03/23 18:57 Freq: Status: Active Protocol: Document 12/08/23 07:32 LRN (Rec: 12/08/23 08:16 LRN [id number]) Current Condition History of Current Condition Onset Date 10/2016 Current Complaints Pain w/entry and deep thrust and incontinence sneeze, jump, wgt lift. History of Current Condition Pt reports recieving therapy for stress incontinence and painful intercourse, after the of her 2nd child, that has gradually worsened and now fees she has to do something about it . 3 P, 2B, of vaginal deliveries. First he was 6#10 and pushed for 3 hrs, 2nd was 10#6oz and birthed in 30 minutes, both 3rd degree tears. STarted seeing a chiropractor because her hips are off L hip if forward and chiro pops it back in. Prior Treatments and Tests Pt repors she is intermittently seeing a chiropractor who works on moving her hip joint posteriorly. Developmental History Developmental History 12/2013, 10/2016 births. Treatment Goals Patient/Caregiver Goals Pt goal -not urinate when sneezing, jumping, lifting -have intercourse w/o pain. Prior Functional Status Baseline Function- Recreation/Hobbies Uncomfortable with intercoure in certain position. Current Functional Impairments (Reported) Functional Limitations- ADL's Painful intercourse no matter the position. 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 Therapy/Recovery Children ages 7 & 10. PT-OP-C Subjective Start: 12/03/23 18:57 Freq: Status: Active Protocol: Document 02/22/24 09:01 LRN (Rec: 02/22/24 09:52 LRN [id number]) OP-PT Subjective Patient Comments Patient Comments No change with leakage of exercise. Having no pain with intercourse if positioned on pillows Patient Questionnaires Pelvic Pain and Urgency/Frequency Patient Symptom Scale Pelvic Pain Score 4 PT-OP-I Pelvic Floor Start: 12/03/23 18:57 Freq: Status: Active Protocol: Document 02/22/24 09:01 LRN (Rec: 02/22/24 09:52 LRN [id number]) Pelvic Floor Assessment Pelvic Clock Pelvic Clock 12-3 Tenderness Pelvic Clock 3-6 Tenderness SEMG (uV) Baseline 3.5 Quick Contraction 6 10 Second Contraction 10 Recruitment Pattern Good Relaxation Fair Holding Fair Stability of Hold Good SEMG Stability of Rest Good Contraction Ability Voluntary Contraction Moderate Voluntary Relaxation Weak Manual Muscle Testing Left 2 Manual Muscle Testing Right 3 Manual Muscle Testing Anterior 2 Manual Muscle Testing Posterior 3 Muscle Endurance (Seconds) 10 Number of Quick Contractions In 10 6 Seconds Comments Pelvic Floor Comments Endurance is 10 sec hold with retightening occuring at 2, 5, 6-10 secs. PT-OP-J Posture/Palpation/Skin Start: 12/03/23 18:57 Freq: Status: Active Protocol: Document 12/08/23 07:32 LRN (Rec: 12/08/23 08:16 LRN [id number]) Posture Evaluation Position Standing Pelvis Posture (L) PSIS Posterior Knee Posture (L) Genu Valgus,(R) Genu Valgus Foot Arch (L) High Arch,(R) Medium Arch Comments Posture Comments Straightened upper T/S, umbilcus shifted R. PT-OP-K Range of Motion Start: 12/03/23 18:57 Freq: Status: Active Protocol: Document 02/22/24 09:01 LRN (Rec: 02/22/24 09:52 LRN [id number]) Hip Goniometric Range of Motion Hip Right Passive Testing Position Supine Internal Rotation 20 External Rotation 75 Left Passive Testing Position Supine Internal Rotation 15 External Rotation 75 PT-OP-M Strength Start: 12/03/23 18:57 Freq: Status: Active Protocol: Document 12/08/23 07:32 LRN (Rec: 12/08/23 08:16 LRN [id number]) Trunk Strength Trunk Manual Muscle Testing Core Stabilization Generally 4+/5, mild loss of rotational stability with MMT of hips. Hip Strength Hip Manual Muscle Testing Right Comments All muscle groups 5/5 Left Comments All muscle groups 5/5 PT-OP-T Assessment and Plan Start: 12/03/23 18:57 Freq: Status: Active Protocol: Document 06/16/24 15:17 LRN (Rec: 06/16/24 15:36 LRN [email or web address]) Physical Therapy Assessment Goals Three Impairment Urinary leakage with sneezing, lifting and jumping. Short Term Goal (STG) Eliminate urinary leakage with sneezing, modifying method of sneezing. 01/18/24: No leakage noted with sneezing. STG Duration 01/22/24 (01/18/24: MET GOAL) Mcfp Goal (LTG) Eliminate urinary leakage with lifting and minimize with jumping. 01/05/24: Pt reporting no urinary leakage with lifts. Holding on jumping as PT requested. 01/18/24: Able to lift 70# dog w/o leakage. Leaking with jumping. 01/16/24: Able to lift heavy weight w/o urinary leakage. (late entry) 02/15/24 leak w/ jumping LTG Duration 04/08/24 progressed 02/15/24, NOT MET GOAL Two Impairment Pain with intercourse Short Term Goal (STG) Pt will be educated and be able to determine the best position for intercourse to minimize the pain and tissue irritation. 12/22/23: Reviewed recommendations of positional stretch with hips on pillows and inner thigh stretch prior to intercourse. 01/05/24: Pt reporting discomfort with intercourse, not pain if laying with pillows under hips to start. 01/12/24: Pt reports 2 episodes of intercourse was w/ o pain, but 3rd time had post intercourse pain of L abdominal pain, probably associated to have eaten just prior to intercourse. 01/18/24: Pt reporting no pain with intercourse using 1 vs 2 pillows under hips and correctional supervisor lieutenant meal before. STG Duration 01/22/24 (01/19/24: MET GOAL) Mcfp Goal (LTG) Eliminate Pelvic pain with intercourse. 01/05/24: Pt reporting discomfort, not pain with intercourse. No insertion pain. 01/12/24: 2 times w/o pain, 1x/with L abdominal pain. 01/18/24: No pain with intercourse. LTG Duration 03/04/24 (01/19/24: MET GOAL ) One Impairment Pt lacks appropriate self care HEP. Short Term Goal (STG) Education in proper methods for transfer with coordination of breathing, PF contractions , and proper vulvar/genital care. 12/22/23: Educated w/handout issued: Transfers & discussed ADLs with breath/Kegel. 02/15/24: Pt educated in proper vulvar/genital care. STG Duration 01/22/24 (02/15/24: MET GOAL) Mcfp Goal (LTG) Pt will be independent with a self care HEP of PF strengthening to improve blood flow and support to bladder, and hip ROM exercises. (late entry) Issued 12/08/23: HEP: Kegel ex's and discussed exercise of Quick Flicks, Long Holds and Aggravators. Issued HEP: Deep breathing exercise. 12/22/23: HEP: bilateral Piriformis & lateral hip stretch, and L ER(fig 4)/AD ( SL & adrián) stretch. I/S pt to do Kegels on wedge and to increase to 5 SH and with ball squeeze an added 2 SH. 01/05/24: HEP: stand L SB and sit L rot turnk stretch. 01/12/24: HEP: Child's Pose stretch and handout for mindfullness. 01/19/24: HEP: Child's Pose, Hip IR stretch sitting (one leg on table) and swinging foot inward (also to be done actively). Paloff Press, Martha trunk rot & trunk rot, supine LTR. Handouts for Proper sit /stand posture and postural changes with . LTG Duration 04/08/24 progressed 01/19/24 , NOT MET GOAL. Assessment Summary Assessment 38 yo female initially seen for dysparenia (w/deep thrust) & DESIREE (no constipation), since of children (10 & 7); urinary leakage with double jumps; cystocele, mild rectocele, urethra drop and possible enterocele (deep L side). At her last assessment 02/22/24, she presented with PF endurance weakness and good strength with quick contractions. Her L lateral wall and anterior PF was weak at 2/5, and she has very tight L hip IR's. The pt 's therapy had been slow and prolonged due to scheduling difficulties both at the clinic and by pt due to holiday schedules. The pt canceled her last appt on 03/31 with no reason given and did not call back to schedule more visits. The pt made good progress on resolving her dyspareunia and urinary leakage with coughing or sneezing, but had unresolved urinary leakage with more vigorous activities (jumping); therefore not all goals were met. The pt is being discharged from PT for lack of attendance. Physical Therapy Plan Discharge Physical Therapy Discharge Reasons No Longer Attending PT Discharge Comments Unable to reach patient by phone, phone number in system belonged to someone else. Thank you for your referral.
== END 2024-06-22 11:27 | disposition home or self-care (01) ==
LOC: PHYS 09:00
PROVIDERS: Family Provider Family Medicine; PCP Family Medicine; Referring Provider Family Medicine; Visit Provider Family Medicine
DX: N39.3 Stress incontinence (female) (male) (principal); M62.89 Other specified disorders of muscle
CPT/HCPCS: 97110; 97112; 97140; 97162; 97530; 97535

== ENCOUNTER → 2024-06-02 10:28 | Outpatient (CLI) | payer OTHER, SELFPAY ==
--- NOTE | 2024-06-02 10:29 | DI.RAD.S_ITS ---
PROCEDURE: XR WRIST LT MIN 3V INDICATIONS: pain TECHNIQUE: 4 views of the wrist were acquired. COMPARISON: None. FINDINGS: Bones: No fractures or dislocations. Negative ulnar variance. Minor osteophytosis at the distal radial ulnar joint. No suspicious bony lesions. Soft tissues: No suspicious soft tissue calcifications. IMPRESSION: Mild degenerative change without evidence of acute bony abnormality. Dictated by: Alfredo Ortiz M.D. on 06/02/2024 at 16:45 Approved by: Alfredo Ortiz M.D. on 06/02/2024 at 16:46
== END ==
PROVIDERS: Family Provider Family Medicine; PCP Family Medicine; Referring Provider Physician Assistant; Visit Provider Physician Assistant
DX: M25.532 Pain in left wrist (principal)
CPT/HCPCS: 73110

== ENCOUNTER → 2024-06-22 09:28 | Outpatient (CLI) | payer OTHER, SELFPAY ==
--- NOTE | 2024-06-22 09:28 | DI.MG.S_ITS ---
US breast RT limited, MM diagnostic mammo BI: 06/22/2024 BI-RADS: 0 CLINICAL: 39-year old female for bilateral diagnostic mammogram and right diagnostic breast ultrasound. Tyrer-Cuzick lifetime risk of 12.9%. No personal or first-degree family history of breast cancer. The patient reports two palpable abnormalities (1 month) in the right breast. PRIOR EXAMS: No prior relevant exams are available for comparison. MAMMOGRAPHY TECHNIQUE: 2D and 3D (tomosynthesis) digital mammographic views obtained, with additional images as needed for full coverage. Current study was also evaluated with a Computer Aided Detection (CAD) system. ULTRASOUND TECHNIQUE Real-time cooper scale imaging of the area of clinical interest was performed with image documentation. TARGETED Right Breast Ultrasound: Real-time ultrasound exam was performed focused to area of clinical and/or imaging concern. DENSITY B. There are scattered areas of fibroglandular density. MAMMOGRAPHY FINDINGS Right (finding-1): Upper Outer Quadrant, Middle depth: A skin marker was placed in the area of concern, and no mammographic abnormalities are identified or to account for concern by the patient of a palpable lump. No suspicious mass, asymmetry, microcalcification, or other abnormality seen. Right (finding-2): Upper Outer Quadrant, Middle depth: A skin marker was placed in the area of concern, and no mammographic abnormalities are identified or to account for concern by the patient of a palpable lump. No suspicious mass, asymmetry, microcalcification, or other abnormality seen. Left: Upper Outer at 2:00, 10 cm from nipple, Middle depth, measuring 1.7 cm: There is an oval, low-density mass present. Additional imaging evaluation needed. ULTRASOUND FINDINGS Right (finding-1): Outer at 9:00, 5.5 cm from nipple: Underlying the surface marker, there is no suspicious sonographic finding to account for concern by the patient of a palpable lump. Right (finding-2): Upper Outer at 11:00, 6 cm from nipple: Underlying the surface marker, there is no suspicious sonographic finding to account for concern by the patient of a palpable lump. IMPRESSION: Right * No evidence of malignancy. Left (Mass): Upper Outer at 2:00, 10 cm from nipple, Middle depth, measuring 1.7 cm * Incomplete - Needs additional imaging evaluation. RECOMMENDATIONS Right * Clinical follow-up is recommended, and further management of palpable abnormalities or other focal signs or symptoms should be based on the results of clinical evaluation. If palpable abnormality or other concerning symptom persists or progresses, further clinical evaluation should be considered. Left: Upper Outer at 2:00, 10 cm from nipple, Middle depth * Further evaluation with diagnostic ultrasound (At this time, no prior examinations are available for comparison. If priors are made available, an addendum to this report will be issued, and patient may not need to return for ultrasound if stability on prior imaging can be assessed). COMMENTS: Findings and recommendations were conveyed to the patient during today's evaluation. OVERALL ASSESSMENT CATEGORY BI-RADS-0: Incomplete - Need Additional Imaging Evaluation. ELECTRONICALLY SIGNED: Gladis Cheung M.D. on 06/22/2024 at 12:31:35 PM PT Interpreting Station ID: [id number]
== END ==
LOC: MAMMO 09:28
PROVIDERS: Family Provider Family Medicine; PCP Family Medicine; Referring Provider Physician Assistant; Visit Provider Physician Assistant
DX: R92.8 Other abnormal and inconclusive findings on diagnostic imaging of breast (principal); N63.21 Unspecified lump in the left breast, upper outer quadrant; N63.13 Unspecified lump in the right breast, lower outer quadrant; N63.11 Unspecified lump in the right breast, upper outer quadrant
CPT/HCPCS: 76642; 77066; G0279

== ENCOUNTER → 2024-07-06 10:44 | Outpatient (CLI) | payer OTHER, SELFPAY ==
--- NOTE | 2024-07-06 10:45 | DI.US.S_ITS ---
US breast LT limited: 07/06/2024. BI-RADS: 1 CLINICAL: 39-year old female for left diagnostic breast ultrasound that is a follow-up to diagnostic mammogram on 06/22/2024. Tyrer-Cuzick lifetime risk of 12.9%. No personal or first-degree family history of breast cancer. The patient reports a palpable abnormality (1 month) in the right breast. PRIOR EXAMS Mammogram(s): 06/22/2024. Breast Ultrasound(s): 06/22/2024. ULTRASOUND TECHNIQUE TARGETED Left Breast Ultrasound: Real-time ultrasound exam was performed focused to area of clinical and/or imaging concern. ULTRASOUND FINDINGS Left: Upper Outer Quadrant: There is no sonographic correlate for the mammographic finding, likely representing normal fibroglandular tissue. The prior mammogram from 08/21/2022 has become available for comparison, and this finding does not appear significantly changed. No suspicious sonographic finding present. IMPRESSION: Left * No evidence of malignancy. RECOMMENDATIONS Left: Upper Outer Quadrant * Annual screening mammography in one year. OVERALL ASSESSMENT CATEGORY BI-RADS-1: Negative. ELECTRONICALLY SIGNED: Abdiaziz Hogan M.D. on 07/06/2024 at 08:38:13 PM PT Interpreting Station ID: [id number]
== END ==
PROVIDERS: Family Provider Family Medicine; PCP Family Medicine; Referring Provider Family Medicine; Visit Provider Family Medicine
DX: R92.8 Other abnormal and inconclusive findings on diagnostic imaging of breast (principal); N63.10 Unspecified lump in the right breast, unspecified quadrant
CPT/HCPCS: 76642

== ENCOUNTER 2024-08-10 07:30 | Outpatient (RCR) | payer OTHER, SELFPAY ==
--- NOTE | 2024-06-29 13:39 | OT.OPPOC ---
Physical, Occupational & Speech Therapy At [facility] Ingrid Falcon [id number] Visit Care Team Role Provider Type Sandy Sandoval DO Family Provider Physician Primary Care Provider Address: [address] [place] [address], [address], [address] Guillermina Lea PA-C Attending Provider Advanced Research Physiologist Referring Provider Address: [address] [place] [address], [address] [place] [address], [id number] Occupational Therapy Plan of Care OT Outpatient Adult Evaluation Start: 06/29/24 07:26 Freq: Status: Active Protocol: Document 06/29/24 07:28 [email or web address] (Rec: 06/29/24 07:30 ANNIECAGALEN [id number]) General Information - Adult Visit Information Visit Number 03/14 Plan of Care Dates 06/29/24 - 08/10/24 Insurance Information [facility]; 60 max PT/OT/ST, 0 used Session Time Visit Start Date 06/29/24 Visit Start Time 07:30 Visit Stop Time 08:13 Setting Treatment Setting Outpatient Care Visit Type Note Type Initial Evaluation Referral Referring Physician Guillermina Lea Reason for Referral L wrist p!; strain muscle/ fascia/tendon L wrist/hand Identification Identification Confirmed Yes Identification Confirmed By name, EMR Patient Questionnaires Quick Dash- Upper Extremity Quick Dash UE Score 20.5 Quick Dash UE Impairment 20 to 39% Impaired (Score 20- 39) Quick Dash- Work and Sports Modules Quick Dash W&S Score S 81.3 Quick Dash Work and Sport Impairment 80 to 99% Impaired (Score 80- 99) Goals Objective Measurements Objective Measurements Pt is negative for reproduction of symptoms with all passive testing and resisted stretch tests (FCR, FCU, ECRL, ECRB, ECU) Ulnocarpal stress test - DRUJ ballottement test + with increased mobility volar VRL/DRL shift test - Ulnar fovea test + ECU synergy test + MMT: L Wrist: flexion 4+, extension 4, RD 5, UD 5 (R wrist 5/5 for all); L Forearm: pronation 3+, supination 5 (R forearm 5/5 for all) Drawing Frame Tender: R 61, 65, 65 (avg 63.7#) , L 60, 65, 65 (avg 63.3#) Pinch: Lateral R 12.5#, L 11.5 #; pincer R 8.5#, L 8.5#; 3 jaw R 10.5#, L 11.25# Treatment Treatment Pt issued pronation isometric and educated on how to perform correctly. Pt instructed to avoid increased p! with this exercises. OT educates pt on brace options, specifically the wrist widget and wrist bullseye. OT recommends ordering either of these and educates pt on how to don and recommends wearing at all times, except when near water, for approximately 6 weeks to assist in providing support to DRUJ and allowing laxity to correct. Short Term Goals Short Term Goals 1. Pt will be I with initial HEP. 2. Pt will procure a wrist widget or bullseye splint and be I with proper wear schedule . Juvenile Corrections Officer Goals Skilled Nursing Goals 1. Pt will increase functional strength of L forearm pronation to 4+/5 for improved DRUJ stability. 2. Pt will increase functional strength of L wrist extension to 4+/5 for improved ability to perform desired work out tasks. 3. Pt will be - DRUJ ballottement of L wrist to demonstrate improved stability of distal joint. 4. Pt will report pain at 2/10 at worst. 5. Pt will be I with advanced HEP. Assessment/Plan Assessment Patient Response Excellent Rehabilitation Potential Excellent Impairments Identified ADLs,Body Mechanics,Functional Activities,Pain,Weakness, Meaningful Activities,Soft Tissue Mobility Treatment Assessment Pt is a 39 yo F who was referred to skilled OT services due to strain of muscle/fascia/tendon of L non- dominant wrist/hand and p! in L wrist. Pt reports that her initial injury began in March, after taking approximately two weeks off of her workouts, she was performing a power clean and her L wrist ?gave out?. She reports that this incident was followed by lifting and storing Shey boxes and she noted increased p!. Pt continued to have difficulty with workouts, especially with weight bearing (ex. Planks and push-ups). Pt gradually noted improvements until approximately 1mo ago, when she had immediate p! and swelling following push-ups. Pt reports that she does not have p! most of the time, but that p! seems to persist after performing an aggravating task. Pt is most frequently aggravated with wrist extension, for example when putting her hair up, closing car door, and with workouts. Pt has modified her workouts to use a more neutral ward service supervisor. Pt reports that once she has aggravated her wrist all her BADL/IADL cause p!. 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 Pt reports no limitations with work unless she ?aggravates? her wrist. Pt has no significant Pmhx. Pt reports p! on dorsal ulnar wrist at 4/10 and volar entire wrist at 5/10. Pt presents with increased laxity with DRUJ ballottement in volar direction, exquisite p! with ulnar fovea test, and increased weakness with ECU synergy test. Pt has significant weakness of forearm pronators and mild- moderate weakness of wrist flex/ext. Pt is negative for sensory deficits. See objective section of eval for specific measurements. Pt has a QuickDash score of 20.5 and QuickDash Sport of 81.25 perceived deficit. Pt presents with increased p!, muscle weakness, DRUJ instability, and decreased BADL/IADL. Skilled OT services are appropriate to address pt deficits and promote return toward PLOF. Reviewed with Patient Goals Plan Length of treatment (weeks) 6 Plan of Care Start Date 06/29/24 Plan of Care End Date 08/10/24 Treatment Frequency Once a Week Treatment Duration 45 Minutes Therapeutic Contents Client Education,Functional Activities,Home Exercise Program,Joint Protection, Manual Therapy,Education, Neuromuscular Re-Education, Self-Care,Splinting,Stretching /Flexibility Activities, Therapeutic Activities, Therapeutic Exercises, Modalities Modalities As Needed Types of Modalities Cyrotherapy,Ice Massage Patient Instruction Home Exercise Program,Plan of Care,Questions/Concerns Functional Wrist/Hand Scan Hand Side Sensory Assessment Sensory Profile2 Electronically Signed by: Toshia Johnson OT 06/29/24 8401 If you are in agreement with this Plan of Care, please return a signed and dated copy. I have reviewed this Plan of Care and certify that the skilled therapy services above are required to meet the patient?s needs. Physician Signature Date Printed Name and Credentials Clinical Instructor Signature Printed Name and Credentials
--- NOTE | 2024-07-11 13:12 | OT.OP.TRT ---
Visit Care Team Role Provider Type Sandy Sandoval DO Family Provider Physician Primary Care Provider Specialty: Family Practice Address: [address] [place] [address], Suite [facility], [place], [address] Email: [email or web address] Guillermina Lea PA-C Attending Provider Advanced Pit And Auxiliaries Supervisor Referring Provider Specialty: Medical Address: [address] [place] [address], Suite [facility], [place], [address] Email: [email or web address] Occupational Therapy Treatment Note OT Outpatient Treatment Note - Adult Start: 06/29/24 07:26 Freq: Status: Active Protocol: Document 07/11/24 09:00 ANNIENOLBERTOSADISTACEY (Rec: 07/11/24 07:33 ANNIENOLBERTOGALEN [id number]) OT Outpatient Adult Treatment Note Session Time Visit Start Date 07/11/24 Visit Start Time 09:00 Visit Stop Time 09:45 Visit Information Visit Number 04/14 Plan of Care Dates 06/29/24 - 08/10/24 Insurance Information [facility]; 60 max PT/OT/ST Setting Treatment Setting Outpatient Care Visit Type Note Type Treatment Note - Subjective Identification Type Name Identification Reconciled With Medical Record Observations Pt reports that she had sharp p! on unlar side of wrist when leaning over to tuck her son in bed. Pt said p! persisted for a couple of days and it woke her up in her sleep at least once. Pt reports she went to the gym on Thursday. She modified during the clean move using less weight and a neutral base engineer and had no p! Pt has order wrist brace options but they have not arrived yet. Chief Complaint(s) Pain Effect on Activity - Objective Short Term Goals 1. Pt will be I with initial HEP. MET 07/11/24 2. Pt will procure a wrist widget or bullseye splint and be I with proper wear schedule . Neonatal Nurse Practitioner Goals 1. Pt will increase functional strength of L forearm pronation to 4+/5 for improved DRUJ stability. 2. Pt will increase functional strength of L wrist extension to 4+/5 for improved ability to perform desired work out tasks. 3. Pt will be - DRUJ ballottement of L wrist to demonstrate improved stability of distal joint. 4. Pt will report pain at 2/10 at worst. 5. Pt will be I with advanced HEP. - Treatment 2 Descriptor Education: pt has purchased two splint/brace options ( wrist widget and bullseye). OT discussed proper donning and wearing schedule for these. OT recommends tightening the straps when in a supinated position due to results of DRUJ ballottement test. OT recommends wearing 24/7 ( unless in/near water) for a minimum of 6 weeks, to allow soft tissues time to heal and contract. Pt verbalizes understanding. 1 Descriptor Proprioception: Wiffle ball with marbles CW and CWW x 60 seconds each bucket with porcupine ball x 60 seconds each Exercises 1 Descriptor Strengthening and Proprioception: Flex bar (yellow) wrist flexion, wrist extension, pronation, supination x20 each Digit bank cashier (6.6#) x20 Manual Therapy Manual Therapy TFM ulnar wrist to ulnotriquetrial ligament, wrist placed in pronation with slight radial deviation. STM to forearm muscles while performing PROM wrist flexion and extension for improved tissue lengthening and trigger point release. - Assessment Patient Response to Treatment Excellent Rehabilitation Potential Excellent Impairments Identified ADLs,Body Mechanics,Functional Activities,Pain,Weakness, Meaningful Activities,Soft Tissue Mobility Progress Towards Goals Good Progress Assessment of Overall Progress Improving Assessment of Improvement Pt had another painful episode since eval. Pt is not sure what position she was in when tucking her son in and hugging him when she had a sharp pain on the ulnar side of her wrist that persisted for days. Pts wrist extensors are tight on palpation and trigger point noted. Pt benefit from STM as well as TFM to ulnar wrist to promote healing. OT provided education with regards to wrist brace/splint. Pt tolerated proprioceptive and strengthening exercises well without increased symptoms. OT instructed pt to perform digit resisted extension at home and educated pt on how to perform isometrically or with rubber band. Pt verbalizes understanding. Pt continues to be appropriate for skilled OT services per established POC. Cont per POC. Reviewed with Patient/Caregiver Goals - Plan Therapy Recommendations Continue with Current Program Amount of Therapy Recommended 1-2 Months Frequency of Treatment Once a Week Length of Session 45 Minutes Therapeutic Contents Client Education,Functional Activities,Home Exercise Program,Joint Protection, Manual Therapy,Education, Neuromuscular Re-Education, Self-Care,Splinting,Stretching /Flexibility Activities, Therapeutic Activities, Therapeutic Exercises, Modalities Modalities As Needed Types of Modalities Cyrotherapy,Ice Massage
--- NOTE | 2024-07-18 13:18 | OT.OP.TRT ---
Visit Care Team Role Provider Type Sandy Sandoval DO Family Provider Physician Primary Care Provider Specialty: Family Practice Address: [address] [place] [address], Suite [facility], [place], [address] Email: [email or web address] Guillermina Lea PA-C Attending Provider Advanced Court Abstractor Referring Provider Specialty: Medical Address: [address] [place] [address], Suite [facility], [place], [address] Email: [email or web address] Occupational Therapy Treatment Note OT Outpatient Treatment Note - Adult Start: 06/29/24 07:26 Freq: Status: Active Protocol: Document 07/18/24 09:03 CONSTANTINSTACEY (Rec: 07/18/24 13:18 JOHNNY [id number]) OT Outpatient Adult Treatment Note Session Time Visit Start Date 07/18/24 Visit Start Time 09:03 Visit Stop Time 09:45 Visit Information Visit Number 05/12 Plan of Care Dates 06/29/24 - 08/10/24 Insurance Information [facility]; 60 max PT/OT/ST Setting Treatment Setting Outpatient Care Visit Type Note Type Treatment Note - Subjective Identification Type Name Identification Reconciled With Medical Record Observations Pt has been wearing her bullseye brace for approximately 1 week. It was sore the first day after starting wearing it, but she hasn't had any complaints since. Pt reports that she is still modifying her workouts. Chief Complaint(s) Pain Effect on Activity - Objective Short Term Goals 1. Pt will be I with initial HEP. MET 07/11/24 2. Pt will procure a wrist widget or bullseye splint and be I with proper wear schedule . MET 07/18/24 Care Home Goals 1. Pt will increase functional strength of L forearm pronation to 4+/5 for improved DRUJ stability. 2. Pt will increase functional strength of L wrist extension to 4+/5 for improved ability to perform desired work out tasks. 3. Pt will be - DRUJ ballottement of L wrist to demonstrate improved stability of distal joint. 4. Pt will report pain at 2/10 at worst. 5. Pt will be I with advanced HEP. - Treatment 2 Descriptor Education: Pt decided on the bullseye brace. Pt verbalizing understanding of wearing schedule, / (unless in/near water) for a minimum of 6 weeks, to allow soft tissues time to heal and contract. Pt reports having initial soreness x 1 day following initial donning of brace, but no other discomfort. OT educates on self massage with tennis ball for tight musculature of forearms. Pt performs on setup with min vcs initially only. 1 Descriptor Proprioception: Wiffle ball with marbles CW and CWW x 60 seconds each small plate with small ball x 2 minutes Exercises 1 Descriptor Strengthening and Proprioception: Flex bar (red) wrist flexion, wrist extension, pronation, supination x20 each Digit gas pumping station supervisor (8.8#) x20 dumbbells (2#): wrist flexion, wrist extension, pronation, supination x10 each Manual Therapy Manual Therapy TFM ulnar wrist to ulnotriquetrial ligament, wrist placed in pronation with slight radial deviation. TFM to ECU, wrist placed in slight pronation and flexion - Assessment Patient Response to Treatment Excellent Rehabilitation Potential Excellent Impairments Identified ADLs,Body Mechanics,Functional Activities,Pain,Weakness, Meaningful Activities,Soft Tissue Mobility Progress Towards Goals Good Progress Assessment of Overall Progress Improving Assessment of Improvement Pt's brace arrived and she's been wearing it for approximately 1 week. Pt had soreness for 1 day following, but has not had any c/o since. OT issued free weight exercise for advanced HEP. Pt demonstrates these well during tx today. OT to reassess pt's I with these at next tx. Pt tolerated increased resistance with flex bar and digit gas pumping station supervisor. Pt continues to be appropriate for skilled OT services per established POC. Cont per POC. Reviewed with Patient/Caregiver Goals - Plan Therapy Recommendations Continue with Current Program Amount of Therapy Recommended 1-2 Months Frequency of Treatment Once a Week Length of Session 45 Minutes Therapeutic Contents Client Education,Functional Activities,Home Exercise Program,Joint Protection, Manual Therapy,Education, Neuromuscular Re-Education, Self-Care,Splinting,Stretching /Flexibility Activities, Therapeutic Activities, Therapeutic Exercises, Modalities Modalities As Needed Types of Modalities Cyrotherapy,Ice Massage
--- NOTE | 2024-08-10 08:31 | OT.OP.TRT ---
Visit Care Team Role Provider Type Sandy Sandoval DO Family Provider Physician Primary Care Provider Specialty: Family Practice Address: [address] [place] [address], Suite [facility], [place], [address] Email: [email or web address] Guillermina Lae PA-C Attending Provider Advanced Copyist Referring Provider Specialty: Medical Address: [address] [place] [address], [place] [address], [place], [address] Email: [email or web address] Occupational Therapy Treatment Note OT Outpatient Treatment Note - Adult Start: 06/29/24 07:26 Freq: Status: Active Protocol: Document 08/10/24 07:30 JOHNNY (Rec: 08/10/24 07:25 JOHNNY [id number]) OT Outpatient Adult Treatment Note Session Time Visit Start Date 08/10/24 Visit Start Time 07:30 Visit Stop Time 08:13 Visit Information Visit Number 06/12 Plan of Care Dates 06/29/24 - 08/10/24 Insurance [facility]; 60 max PT/OT/ST Information Setting Treatment Setting Outpatient Care Visit Type Note Type Treatment Note - Subjective Identification Type Name Identification Medical Record Reconciled With Observations Pt reports she has been wearing her wrist bullseye for approximately 4 weeks. She has not had another episode of increased pain since our last conversation. Pt flew to [facility] recently and reports that she had significant throbbing in ulnar side of her proximal wrist. Pt denies all pain at start, during, and end of tx. Chief Complaint(s) Pain Effect on Activity - Objective Objective DRUJ ballottement test - Measurements Ulnar fovea test + ECU synergy test - MMT: L wrist: flexion 5/5, extension 5/5, RD 5/5, UD 5/ 5; L forearm: pronation 5/5, supination 5/5 Trimming Machine Set Up Operator: L 53, 54, 50 (avg 52.3#) Pinch: lateral L 13#, pincer L 9#, 3 jaw L 12# QuickDash 2.3, QuickDash Sport 25 Short Term Goals 1. Pt will be I with initial HEP. MET 07/11/24 2. Pt will procure a wrist widget or bullseye splint and be I with proper wear schedule. MET 07/18/24 Detention Goals 1. Pt will increase functional strength of L forearm pronation to 4+/5 for improved DRUJ stability. MET 2. Pt will increase functional strength of L wrist extension to 4+/5 for improved ability to perform desired work out tasks. MET 08/10/24 3. Pt will be - DRUJ ballottement of L wrist to demonstrate improved stability of distal joint. MET 08/10 4. Pt will report pain at 2/10 at worst. MET 08/10/24 5. Pt will be I with advanced HEP. - Treatment 2 Descriptor Education: OT reminded pt to wear bullseye brace until 6 weeks. At that point she can take it off and perform normal activities. If she notes increased soreness/ discomfort, OT suggests reapplying brace and wearing for another week or two and then retesting without. OT recommends that she continue to wear her bullseye brace during moving activities regardless of where they fall in with the weeks of wear originally recommended. Pt verbalizes understanding. Exercises 1 Descriptor Strengthening and Proprioception: Flex bar (yellow) wrist flexion, wrist extension, pronation, supination x10 each Flex bar (red) wrist flexion, wrist extension, pronation, supination x10 each dumbbells (2#): wrist flexion, wrist extension, pronation, supination x10 each Manual Therapy Manual Therapy TFM ulnar wrist to ulnotriquetrial ligament, wrist placed in pronation with slight radial deviation. TFM to ECU, wrist placed in slight pronation and flexion - Assessment Patient Response to Excellent Treatment Rehabilitation Excellent Potential Impairments ADLs,Body Mechanics,Functional Activities,Pain,Weakness Identified ,Meaningful Activities,Soft Tissue Mobility Progress Towards Good Progress Goals Assessment of Improving Overall Progress Assessment of Pt arrived to therapy wearing her wrist bullseye. She Improvement reports she's been wearing it for 4 weeks so far. OT discussed wear schedule and weaning from brace when appropriate. Pt verbalizes understanding of how to wean from brace. Pt demonstrates improvement with MMT, special tests, and pinch strengths, see objective section for details. Pt demonstrates I with HEP. Pt tolerated TFM well for increased circulation and to promote healing. Pt has met all established goals and is appropriate for d/c to HEP at this time. Reviewed with Goals Patient/Caregiver - Plan Therapy Discharge to Home Exercise Program,Discharge from Recommendations Occupational Therapy
--- NOTE | 2024-08-10 08:32 | OT.OP.DC ---
Visit Care Team Role Provider Type Sandy Sandoval DO Family Provider Physician Primary Care Provider Address: [address] [place] [address], [address], [place], [address] Email: [email or web address] Guillermina Lea PA-C Attending Provider Advanced Bag Sewer Referring Provider Address: [address] [place] [address], [place] [address], [place], [address] Email: [email or web address] OT Outpatient OT Outpatient Adult Evaluation Start: 06/29/24 07:26 Freq: Status: Active Protocol: Document 06/29/24 07:28 ANNIENOLBERTOGALEN (Rec: 06/29/24 07:30 ANNIENOLBERTOGALEN [id number]) General Information - Adult Visit Information Visit Number 03/14 Plan of Care Dates 06/29/24 - 08/10/24 Insurance [facility]; 60 max PT/OT/ST, 0 used Information Session Time Visit Start Date 06/29/24 Visit Start Time 07:30 Visit Stop Time 08:13 Setting Treatment Setting Outpatient Care Visit Type Note Type Initial Evaluation Referral Referring Physician Guillermina Lea Reason for Referral L wrist p!; strain muscle/fascia/tendon L wrist/hand Identification Identification Yes Confirmed Identification name, EMR Confirmed By Patient Questionnaires Quick Dash- Upper Extremity Quick Dash UE Score 20.5 Quick Dash UE 20 to 39% Impaired (Score 20-39) Impairment Quick Dash- Work and Sports Modules Quick Dash W&S Score S 81.3 Quick Dash Work and 80 to 99% Impaired (Score 80-99) Sport Impairment Goals Objective Measurements Objective Pt is negative for reproduction of symptoms with all Measurements passive testing and resisted stretch tests (FCR, FCU, ECRL, ECRB, ECU) Ulnocarpal stress test - DRUJ ballottement test + with increased mobility volar VRL/DRL shift test - Ulnar fovea test + ECU synergy test + MMT: L Wrist: flexion 4+, extension 4, RD 5, UD 5 (R wrist 5/5 for all); L Forearm: pronation 3+, supination 5 (R forearm 5/5 for all) Brake Drum Molder: R 61, 65, 65 (avg 63.7#), L 60, 65, 65 (avg 63.3# ) Pinch: Lateral R 12.5#, L 11.5#; pincer R 8.5#, L 8.5#; 3 jaw R 10.5#, L 11.25# Treatment Treatment Pt issued pronation isometric and educated on how to perform correctly. Pt instructed to avoid increased p! with this exercises. OT educates pt on brace options, specifically the wrist widget and wrist bullseye. OT recommends ordering either of these and educates pt on how to don and recommends wearing at all times, except when near water , for approximately 6 weeks to assist in providing support to DRUJ and allowing laxity to correct. Short Term Goals Short Term Goals 1. Pt will be I with initial HEP. 2. Pt will procure a wrist widget or bullseye splint and be I with proper wear schedule. Manager Corporate Communications Goals Manager Corporate Communications Goals 1. Pt will increase functional strength of L forearm pronation to 4+/5 for improved DRUJ stability. 2. Pt will increase functional strength of L wrist extension to 4+/5 for improved ability to perform desired work out tasks. 3. Pt will be - DRUJ ballottement of L wrist to demonstrate improved stability of distal joint. 4. Pt will report pain at 2/10 at worst. 5. Pt will be I with advanced HEP. Assessment/Plan Assessment Patient Response Excellent Rehabilitation Excellent Potential Impairments ADLs,Body Mechanics,Functional Activities,Pain,Weakness Identified ,Meaningful Activities,Soft Tissue Mobility Treatment Assessment Pt is a 39 yo F who was referred to skilled OT services due to strain of muscle/fascia/tendon of L non- dominant wrist/hand and p! in L wrist. Pt reports that her initial injury began in March, after taking approximately two weeks off of her workouts, she was performing a power clean and her L wrist ?gave out?. She reports that this incident was followed by lifting and storing Shey boxes and she noted increased p!. Pt continued to have difficulty with workouts, especially with weight bearing (ex. Planks and push-ups ). Pt gradually noted improvements until approximately 1mo ago, when she had immediate p! and swelling following push-ups. Pt reports that she does not have p! most of the time, but that p! seems to persist after performing an aggravating task. Pt is most frequently aggravated with wrist extension, for example when putting her hair up, closing car door, and with workouts. Pt has modified her workouts to use a more neutral lockstitcher. Pt reports that once she has aggravated her wrist all her BADL/IADL cause p!. 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 Pt reports no limitations with work unless she ?aggravates? her wrist. Pt has no significant Pmhx. Pt reports p! on dorsal ulnar wrist at 4/10 and volar entire wrist at 5/10. Pt presents with increased laxity with DRUJ ballottement in volar direction, exquisite p! with ulnar fovea test, and increased weakness with ECU synergy test. Pt has significant weakness of forearm pronators and mild-moderate weakness of wrist flex/ext. Pt is negative for sensory deficits. See objective section of eval for specific measurements. Pt has a QuickDash score of 20.5 and QuickDash Sport of 81.25 perceived deficit. Pt presents with increased p!, muscle weakness, DRUJ instability, and decreased BADL/ IADL. Skilled OT services are appropriate to address pt deficits and promote return toward PLOF. Reviewed with Goals Patient Plan Length of treatment 6 (weeks) Plan of Care Start 06/29/24 Date Plan of Care End 08/10/24 Date Treatment Frequency Once a Week Treatment Duration 45 Minutes Therapeutic Contents Client Education,Functional Activities,Home Exercise Program,Joint Protection,Manual Therapy,Education, Neuromuscular Re-Education,Self-Care,Splinting, Stretching/Flexibility Activities,Therapeutic Activities,Therapeutic Exercises,Modalities Modalities As Needed Types of Modalities Cyrotherapy,Ice Massage Patient Instruction Home Exercise Program,Plan of Care,Questions/Concerns Functional Wrist/Hand Scan Hand Side Sensory Assessment Sensory Profile2 OT Outpatient Discharge Note - Adult Start: 06/29/24 07:26 Freq: Status: Active Protocol: Document 08/10/24 07:30 JOHNNY (Rec: 08/10/24 07:25 JOHNNY [id number]) OT Outpatient Adult Discharge Note Session Time Visit Start Date 08/10/24 Visit Start Time 07:30 Visit Stop Time 08:13 Visit Information Visit Number 06/12 Plan of Care Dates 06/29/24 - 08/10/24 Insurance [facility]; 60 max PT/OT/ST Information Setting Treatment Setting Outpatient Care Visit Type Note Type Discharge Note - Subjective Identification Type Name Identification Medical Record Reconciled With Observations Pt reports she has been wearing her wrist bullseye for approximately 4 weeks. She has not had another episode of increased pain since our last conversation. Pt flew to [facility] recently and reports that she had significant throbbing in ulnar side of her proximal wrist. Pt denies all pain at start, during, and end of tx. Chief Complaint(s) Pain Effect on Activity - Objective Objective DRUJ ballottement test - Measurements Ulnar fovea test + ECU synergy test - MMT: L wrist: flexion 5/5, extension 5/5, RD 5/5, UD 5/ 5; L forearm: pronation 5/5, supination 5/5 Brake Drum Molder: L 53, 54, 50 (avg 52.3#) Pinch: lateral L 13#, pincer L 9#, 3 jaw L 12# QuickDash 2.3, QuickDash Sport 25 Short Term Goals 1. Pt will be I with initial HEP. MET 07/11/24 2. Pt will procure a wrist widget or bullseye splint and be I with proper wear schedule. MET 07/18/24 Manager Corporate Communications Goals 1. Pt will increase functional strength of L forearm pronation to 4+/5 for improved DRUJ stability. MET 2. Pt will increase functional strength of L wrist extension to 4+/5 for improved ability to perform desired work out tasks. MET 08/10/24 3. Pt will be - DRUJ ballottement of L wrist to demonstrate improved stability of distal joint. MET 08/10 4. Pt will report pain at 2/10 at worst. MET 08/10/24 5. Pt will be I with advanced HEP. - Treatment 2 Descriptor Education: OT reminded pt to wear bullseye brace until 6 weeks. At that point she can take it off and perform normal activities. If she notes increased soreness/ discomfort, OT suggests reapplying brace and wearing for another week or two and then retesting without. OT recommends that she continue to wear her bullseye brace during moving activities regardless of where they fall in with the weeks of wear originally recommended. Pt verbalizes understanding. Exercises 1 Descriptor Strengthening and Proprioception: Flex bar (yellow) wrist flexion, wrist extension, pronation, supination x10 each Flex bar (red) wrist flexion, wrist extension, pronation, supination x10 each dumbbells (2#): wrist flexion, wrist extension, pronation, supination x10 each Manual Therapy Manual Therapy TFM ulnar wrist to ulnotriquetrial ligament, wrist placed in pronation with slight radial deviation. TFM to ECU, wrist placed in slight pronation and flexion - Assessment Patient Response to Excellent Treatment Rehabilitation Excellent Potential Impairments ADLs,Body Mechanics,Functional Activities,Pain,Weakness Identified ,Meaningful Activities,Soft Tissue Mobility Progress Towards Good Progress Goals Assessment of Improving Overall Progress Assessment of Improvement Pt has been seen by skilled OT services for L wrist strain of muscle/fascia/tendon for eval and 3 treatments. OT recommended a wrist bullseye splint based on pt's specific laxities and pt has been consistent in wearing this for 4 weeks. This has made a difference in allowing pt's soft tissues to tighten and heal based on now having - DRUJ ballottement and ECU synergy tests. Pt is aware of wearing schedule and weaning schedule and is I with these. Pt is I with HEP and demonstrates improvements in MMT and pinch strengths, see objective section for specifics. Pt has met all goals and is appropriate for d/c to HEP. Reviewed with Goals Patient/Caregiver - Plan Therapy Discharge to Home Exercise Program,Discharge from Recommendations Occupational Therapy
== END 2024-08-22 10:24 | disposition home or self-care (01) ==
LOC: OT 07:30
PROVIDERS: Family Provider Family Medicine; PCP Family Medicine; Referring Provider Physician Assistant; Visit Provider Physician Assistant
DX: M25.539 Pain in unspecified wrist (principal); S66.912D Strain of unspecified muscle, fascia and tendon at wrist and hand level, left hand, subsequent encounter
CPT/HCPCS: 97110; 97140; 97165; 97530